=== PATIENT | female | born 1985 | race African-American/Black ===

== ENCOUNTER 2016-08-26 18:24 | Emergency (ER) | payer MEDICAID, OTHER ==
--- NOTE | 2016-08-26 19:11 | ER Document Report ---
ED Medical Screen (RME) - General Chief Complaint: Chest Pain Stated Complaint: CHEST PAIN Notes: Patient is here because she's feeling some left anterior chest pains for the past couple of days. Does not recall any injury or unusual activity. Says it feels "squishy". Also feels a little bit of shortness of breath and she's had a slight cough. No pains in her legs or swelling of either leg. Patient does have a history of a pulmonary embolus in 2014 and was on anticoagulation with warfarin and then Xarelto until 2 months ago. When patient had the PE, her presenting symptoms were syncope and no other symptoms. Thus, this chest pain does not have any semblance to her symptoms with PE No history of hypertension, diabetes, or heart disease. TRAVEL OUTSIDE OF THE [place] IN LAST 30 DAYS: No - Related Data Allergies/Adverse Reactions: No Known Allergies Allergy (Verified 09/14/15 17:55) Past Medical History - Past Medical History Cardiac Medical History: Reports: Hx Pulmonary Embolism Renal/ Medical History: Denies: Hx Peritoneal Dialysis Past Surgical History: Reports: Hx Section, Hx Cholecystectomy Physical Exam - Vital signs Vitals: Temp Pulse Resp BP Pulse Ox 99.2 F 98 16 130/85 H 98 08/26/16 18:39 08/26/16 18:39 08/26/16 18:39 08/26/16 18:39 08/26/16 18:39 Course - Vital Signs Vital signs: Temp Pulse Resp BP Pulse Ox 99.2 F 98 16 130/85 H 98 08/26/16 18:39 08/26/16 18:39 08/26/16 18:39 08/26/16 18:39 08/26/16 18:39
[2016-08-26 19:58] LABS: ABSOLUTE BASOPHILS # (AUTO) 0.1 10^3/uL (0.0-0.2); ABSOLUTE EOSINOPHILS # (AUTO) 0.2 10^3/uL (0.0-0.6); ABSOLUTE MONOCYTES (AUTO) 0.7 10^3/uL (0.1-1.4); ABSOLUTE NEUT (AUTO) 3.5 10^3/uL (1.7-8.2); BASOPHILS % (AUTO) 0.9 % (0-2); EOSINOPHILS % (AUTO) 2.9 % (0-6); HEMATOCRIT 39.8 % (36.0-47.0); HEMOGLOBIN 13.9 g/dL (12.0-15.5); HGB HCT DIFFERENCE 1.9; LYMPHOCYTES % (AUTO) 46.9 % (13-45); MEAN CORPUSCULAR HEMOGLOBIN 31.9 pg (27.0-33.4); MEAN CORPUSCULAR VOLUME 91 fl (80-97); MONOCYTES % (AUTO) 7.9 % (3-13); RED BLOOD COUNT 4.37 10^6/uL (3.72-5.28); SEGMENTED NEUTROPHILS % (AUTO) 41.4 % (42-78); WHITE BLOOD COUNT 8.4 10^3/uL (4.0-10.5)
[2016-08-26 20:06] LABS: ALANINE AMINOTRANSFERASE 23 U/L (9-52); ALBUMIN 4.5 g/dL (3.5-5.0); ALKALINE PHOSPHATASE 62 U/L (38-126); ANION GAP 11 (5-19); ASPARTATE AMINO TRANSFERASE 21 U/L (14-36); BILIRUBIN,DIRECT 0.3 mg/dL (0.0-0.4); BILIRUBIN,TOTAL 0.7 mg/dL (0.2-1.3); BLOOD UREA NITROGEN 11 mg/dL (7-20); CALCIUM 9.4 mg/dL (8.4-10.2); CARBON DIOXIDE 25 mmol/L (22-30); CHLORIDE 108 mmol/L (98-107); CREATININE RESULT 0.86 mg/dL (0.52-1.25); GLUCOSE 98 mg/dL (75-110); POTASSIUM 4.1 mmol/L (3.6-5.0); SODIUM 144.2 mmol/L (137-145); TOTAL PROTEIN 7.9 g/dL (6.3-8.2)
[2016-08-26 20:18] LABS: CREATINE KINASE MB 0.43 ng/mL (<4.55)
[2016-08-26 20:19] LABS: TROPONIN I < 0.012 ng/mL
--- NOTE | 2016-08-26 21:21 | EKG REPORT ---
SEVERITY:- NORMAL ECG - SINUS RHYTHM : Confirmed by: Rocky Santoyo MD 26-Aug-2016 21:21:11
[2016-08-26 22:09] VITALS: BP 129/84
--- NOTE | 2016-08-26 22:45 | ER Document Report ---
ED Cardiac - General Chief Complaint: Chest Pain Stated Complaint: CHEST PAIN Notes: Patient is a 31-year-old female who comes in complaining of intermittent chest discomfort and dyspnea at times. Patient is also felt lightheaded on and off. Patient does not have any symptoms at this time. Patient has a history of a pulmonary embolus in 2014 when she was taking control. Patient is not on any anticoagulation at this time. Again, denies chest pain currently. No other medical problems TRAVEL OUTSIDE OF THE [place] IN LAST 30 DAYS: No - HPI Patient complains to provider of: Chest tightness Quality of pain: None Exacerbated by: Denies Relieved by: Nothing Similar symptoms previously: Yes Recently seen / treated by doctor: No - Related Data Allergies/Adverse Reactions: chocolate flavor Allergy (Verified 08/26/16 20:53) Past Medical History - General Information source: Patient - Social History Smoking Status: Unknown if Ever Smoked Family History: Reviewed & Not Pertinent - Past Medical History Cardiac Medical History: Reports: Hx Pulmonary Embolism Renal/ Medical History: Denies: Hx Peritoneal Dialysis Past Surgical History: Reports: Hx Section, Hx Cholecystectomy Review of Systems - Review of Systems Constitutional: No symptoms reported EENT: No symptoms reported Cardiovascular: See HPI Respiratory: See HPI Gastrointestinal: No symptoms reported Genitourinary: No symptoms reported Female Genitourinary: No symptoms reported Musculoskeletal: No symptoms reported Skin: No symptoms reported Hematologic/Lymphatic: No symptoms reported Neurological/Psychological: No symptoms reported Physical Exam - Vital signs Vitals: Temp Pulse Resp BP Pulse Ox 99.2 F 98 16 130/85 H 98 08/26/16 18:39 08/26/16 18:39 08/26/16 18:39 08/26/16 18:39 08/26/16 18:39 Interpretation: Normal - General General appearance: Appears well, Alert - HEENT Head: Normocephalic, Atraumatic Eyes: Normal Pupils: PERRL - Respiratory Respiratory status: No respiratory distress Chest status: Nontender Breath sounds: Normal Chest palpation: Normal - Cardiovascular Rhythm: Regular Heart sounds: Normal auscultation Murmur: No - Abdominal Inspection: Normal Distension: No distension Bowel sounds: Normal Tenderness: Nontender Organomegaly: No organomegaly - Back Back: Normal, Nontender - Extremities General upper extremity: Normal inspection, Nontender, Normal color, Normal ROM , Normal temperature General lower extremity: Normal inspection, Nontender, Normal color, Normal ROM , Normal temperature, Normal weight bearing. No: Esther's sign - Neurological Neuro grossly intact: Yes Cognition: Normal Orientation: AAOx4 [place] Coma Scale Eye Opening: Spontaneous Suly Coma Scale Verbal: Oriented [place] Coma Scale Motor: Obeys Commands Suly Coma Scale Total: 15 Speech: Normal Motor strength normal: LUE, RUE, LLE, RLE Sensory: Normal - Psychological Associated symptoms: Normal affect, Normal mood - Skin Skin Temperature: Warm Skin Moisture: Dry Skin Color: Normal Course - Re-evaluation Re-evalutation: 08/26/16 23:27 Patient with normal blood work except for slightly elevated d-dimer. CTA with no evidence for blood clot, infection, or any other concerns. Patient will be discharged home is to follow-up with her primary doctor. Stable for discharge. Return if any worsening or concerning symptoms. - Vital Signs Vital signs: Temp Pulse Resp BP Pulse Ox 99.2 F 84 16 129/84 H 100 08/26/16 18:39 08/26/16 22:57 08/26/16 22:57 08/26/16 22:57 08/26/16 22:57 - Laboratory Result Diagrams: 08/26/16 19:50 08/26/16 19:50 Laboratory results interpreted by me: 08/26/16 08/26/16 08/26/16 19:50 19:50 19:50 Seg Neutrophils % 41.4 L Lymphocytes % 46.9 H D-Dimer 0.53 H Chloride 108 H - Diagnostic Test Radiology reviewed: Image reviewed, Reports reviewed Discharge - Discharge Clinical Impression: Chest pain Qualifiers: Chest pain type: unspecified Qualified Code(s): R07.9 - Chest pain, unspecified Condition: Stable Disposition: HOME, SELF-CARE Instructions: Chest Pain of Unclear Cause ([facility]) Forms: Return to Work Scribe Attestation: 08/26/16 23:27 I personally performed the services described in the documentation, reviewed and edited the documentation which was dictated to the scribe in my presence, and it accurately records my words and actions.
== END 2016-08-26 22:58 | disposition home or self-care (01) ==
LOC: ER 18:24
DX: R07.9 Chest pain, unspecified (principal)
CPT/HCPCS: 36415; 71020; 71275; 80053; 81025; 82553; 84484; 85025; 85379; 93005; 93010; 99285

== ENCOUNTER → 2016-10-11 | Outpatient (CLI) | payer OTHER ==
--- NOTE | 2016-10-11 12:15 | RADIOLOGY REPORT (SQ) ---
EXAM DESCRIPTION: CHEST PA/LATERAL COMPLETED DATE/TIME: 10/11/2016 12:05 pm REASON FOR STUDY: ACUTE PHARYNGITIS, UNSPECIFIED,COUGH COMPARISON: 08/26/2016. EXAM PARAMETERS: NUMBER OF VIEWS: two views TECHNIQUE: Digital Frontal and Lateral radiographic views of the chest acquired. RADIATION DOSE: NA LIMITATIONS: none FINDINGS: LUNGS AND PLEURA: No opacities, masses or pneumothorax. No pleural effusion. MEDIASTINUM AND HILAR STRUCTURES: No masses or contour abnormalities. HEART AND VASCULAR STRUCTURES: Heart upper limits of normal size. No evidence for failure. BONES: No acute findings. HARDWARE: None in the chest. OTHER: No other significant finding. IMPRESSION: STABLE BORDERLINE CARDIOMEGALY. NO ACUTE RADIOGRAPHIC FINDING IN THE CHEST. TECHNICAL DOCUMENTATION: JOB ID: [id number] [employer]- All Rights Reserved
--- NOTE | 2016-10-11 12:16 | RADIOLOGY REPORT (SQ) ---
EXAM DESCRIPTION: SOFT TISSUE NECK COMPLETED DATE/TIME: 10/11/2016 12:05 pm REASON FOR STUDY: ACUTE PHARYNGITIS, UNSPECIFIED,COUGH R05 COUGH J02.9 ACUTE PHARYNGITIS, UNSPECIF IED COMPARISON: None. NUMBER OF VIEWS: Two views. TECHNIQUE: AP and lateral radiographic image of the soft tissues of the neck. LIMITATIONS: None. FINDINGS: EPIGLOTTIS: Normal. Contour normal. Aryepiglottic folds normal. PREVERTEBRAL SOFT TISSUES: Normal. No soft tissue swelling. SUBGLOTTIC AREA: Normal. No narrowing. RETROPHARYNGEAL SPACE: Normal. No soft tissue masses. BONY STRUCTURES: No significant findings. LUNG APICES: Normal. OTHER: No radiopaque foreign body. No other significant finding. IMPRESSION: NEGATIVE STUDY OF THE SOFT TISSUES OF THE NECK. TECHNICAL DOCUMENTATION: JOB ID: [id number] [employer]- All Rights Reserved
== END ==
LOC: OD 11:43
PROVIDERS: ATTEND Nurse Practitioner Acute Care
DX: J02.9 Acute pharyngitis, unspecified (principal); R05 Cough
CPT/HCPCS: 70360; 71020

== ENCOUNTER 2018-05-14 13:27 | Inpatient (IN) | payer OTHER, BC ==
[2018-05-14] MEDS ORDERED: IBUPROFEN 800 MG TABLET PO ONE (13:50)
[2018-05-14] MEDS ORDERED: NORMAL SALINE 1000 ML 1,000 ML IV PRN (15:02)
[2018-05-14] MEDS ORDERED: ONDANSETRON HCL INJ/PF 4 MG/2 ML SDV IV ONE (15:03)
--- NOTE | 2018-05-14 15:06 | ER Document Report ---
ED Medical Screen (RME) - General Chief Complaint: Nausea/Vomiting Stated Complaint: ABDOMINAL PAIN Time Seen by Provider: 05/14/18 14:56 Notes: Patient says that she has been sick for the past couple of days. She has had right lower quadrant abdominal pain which is mostly constant and worsened with walking. She is also had vomiting and diarrhea, for the 2 days, about 10 times each. No blood seen. Still nauseated at this time. Has not had any UTI symptoms. Has had fever. LMP 12/16, on Mirena control. PMH: . Gastric bypass 1 year ago. TRAVEL OUTSIDE OF THE [place] IN LAST 30 DAYS: No - Related Data Allergies/Adverse Reactions: chocolate flavor Allergy (Verified 08/26/16 20:53) Past Medical History - Social History Frequency of alcohol use: None Drug Abuse: None - Past Medical History Cardiac Medical History: Reports: Hx Pulmonary Embolism Renal/ Medical History: Denies: Hx Peritoneal Dialysis Past Surgical History: Reports: Hx Section, Hx Cholecystectomy Physical Exam - Vital signs Vitals: Temp Pulse Resp BP Pulse Ox 103.0 F H 115 H 17 109/67 93 05/14/18 13:41 05/14/18 13:41 05/14/18 13:41 05/14/18 13:41 05/14/18 13:41 Course - Vital Signs Vital signs: Temp Pulse Resp BP Pulse Ox 103.0 F H 115 H 17 109/67 93 05/14/18 13:41 05/14/18 13:41 05/14/18 13:41 05/14/18 13:41 05/14/18 13:41
[2018-05-14 15:41] LABS: ABSOLUTE BASOPHILS # (AUTO) 0.1 10^3/uL (0.0-0.2); ABSOLUTE LYMPHOCYTES (AUTO) 1.3 10^3/uL (0.5-4.7); ABSOLUTE MONOCYTES (AUTO) 0.9 10^3/uL (0.1-1.4); ABSOLUTE NEUT (AUTO) 12.5 10^3/uL (1.7-8.2); BASOPHILS % (AUTO) 0.8 % (0-2); EOSINOPHILS % (AUTO) 0.2 % (0-6); HEMATOCRIT 25.4 % (36.0-47.0); LYMPHOCYTES % (AUTO) 8.6 % (13-45); MEAN CORPUSCULAR HGB CONC 30.9 g/dL (32.0-36.0); MEAN CORPUSCULAR VOLUME 74 fl (80-97); PLATELET COUNT 290 10^3/uL (150-450); RED BLOOD COUNT 3.41 10^6/uL (3.72-5.28); SEGMENTED NEUTROPHILS % (AUTO) 84.4 % (42-78); TOTAL CELLS COUNTED % (AUTO) 100 %; WHITE BLOOD COUNT 14.8 10^3/uL (4.0-10.5)
[2018-05-14 15:43] LABS: APPEARANCE,URINE SLIGHTLY-CLOUDY; BILIRUBIN,URINE NEGATIVE (NEGATIVE); GLUCOSE, URINE NEGATIVE (NEGATIVE); KETONES,URINE NEGATIVE (NEGATIVE); LEUKOCYTE ESTERASE,URINE SMALL (NEGATIVE); NITRITE,URINE NEGATIVE (NEGATIVE); PROTEIN,URINE 100 mg/dL (NEGATIVE)
[2018-05-14 15:44] LABS: COLOR,URINE YELLOW
[2018-05-14 15:54] LABS: HEMOGLOBIN 7.9 g/dL (12.0-15.5)
[2018-05-14 15:56] LABS: ALANINE AMINOTRANSFERASE 21 U/L (9-52); ALBUMIN 3.8 g/dL (3.5-5.0); ALKALINE PHOSPHATASE 111 U/L (38-126); ANION GAP 9 (5-19); ASPARTATE AMINO TRANSFERASE 19 U/L (14-36); BILIRUBIN,DIRECT 0.3 mg/dL (0.0-0.4); BILIRUBIN,TOTAL 1.1 mg/dL (0.2-1.3); BLOOD UREA NITROGEN 10 mg/dL (7-20); CALCIUM 9.2 mg/dL (8.4-10.2); CARBON DIOXIDE 23 mmol/L (22-30); CHLORIDE 107 mmol/L (98-107); GLUCOSE 95 mg/dL (75-110); LIPASE 58.2 U/L (23-300); POTASSIUM 3.3 mmol/L (3.6-5.0); SODIUM 139.2 mmol/L (137-145); TOTAL PROTEIN 7.3 g/dL (6.3-8.2)
--- NOTE | 2018-05-14 16:45 | ER Document Report ---
ED GI/ - General Chief Complaint: Nausea/Vomiting Stated Complaint: ABDOMINAL PAIN Time Seen by Provider: 05/14/18 14:56 Mode of Arrival: Ambulatory Information source: Patient Notes: Patient presents complaining of right lower quadrant pain for the past 2 days. Patient reports nausea vomiting and diarrhea. Patient states she last vomited yesterday and had diarrhea x2 episodes today. Patient denies any urinary symptoms. Patient does report fever started yesterday. Patient does complain of mild cough for the past 3 days. TRAVEL OUTSIDE OF THE [place] IN LAST 30 DAYS: No - HPI Patient complains to provider of: Diarrhea, Pelvic pain, Vomiting Onset: Other - 2 days Timing/Duration: Worse Quality of pain: Achy, Sharp Pain Level: 3 Location: RLQ Vaginal bleeding (Compared to normal period): None Menstrual period history: denies: Associated symptoms: Diarrhea, Fever, Nausea, Vomiting. denies: Dysuria, Urinary hesitancy, Urinary frequency, Urinary retention, Urinary urgency Exacerbated by: Denies Relieved by: Denies Similar symptoms previously: No Recently seen / treated by doctor: No - Related Data Allergies/Adverse Reactions: chocolate flavor Allergy (Verified 08/26/16 20:53) Past Medical History - General Information source: Patient - Social History Smoking Status: Never Smoker Frequency of alcohol use: None Drug Abuse: None Occupation: driver examiner Family History: Reviewed & Not Pertinent Patient has suicidal ideation: No Patient has homicidal ideation: No - Past Medical History Cardiac Medical History: Reports: Hx Pulmonary Embolism Renal/ Medical History: Denies: Hx Peritoneal Dialysis Past Surgical History: Reports: Hx Section, Hx Cholecystectomy, Hx Gastric Bypass Surgery Review of Systems - Review of Systems Constitutional: Fever EENT: No symptoms reported Cardiovascular: Dizziness. denies: Chest pain Respiratory: No symptoms reported. denies: Cough, Short of breath Gastrointestinal: Abdominal pain, Diarrhea, Nausea, Vomiting Genitourinary: No symptoms reported. denies: Dysuria, Flank pain Female Genitourinary: No symptoms reported. denies: , Vaginal discharge Musculoskeletal: No symptoms reported Skin: No symptoms reported Hematologic/Lymphatic: No symptoms reported Neurological/Psychological: No symptoms reported Physical Exam - Vital signs Vitals: Temp Pulse Resp BP Pulse Ox 103.0 F H 115 H 17 109/67 93 05/14/18 13:41 05/14/18 13:41 05/14/18 13:41 05/14/18 13:41 05/14/18 13:41 - General General appearance: Appears well, Alert In distress: None - HEENT Head: Normocephalic, Atraumatic Eyes: Normal Conjunctiva: Normal Nasal: Normal Mouth/Lips: Normal Mucous membranes: Normal Neck: Normal, Supple. No: Lymphadenopathy - Respiratory Respiratory status: No respiratory distress Chest status: Nontender Breath sounds: Normal. No: Rales, Rhonchi, Stridor, Wheezing Chest palpation: Normal - Cardiovascular Rhythm: Regular Heart sounds: S1 appreciated, S2 appreciated Murmur: No - Abdominal Inspection: Normal Distension: No distension Bowel sounds: Normal Tenderness: Tender - Lower pelvic, right worse than left, McBurney's point Organomegaly: No organomegaly - Rectal Tenderness: No Stool: See lab result Hemorrhoids: None - Genitourinary External exam: Normal Speculum exam: Cervix closed, Vaginal discharge Vaginal bleeding: None Bimanuel exam: Cervical motion tender, Adnexal tenderness - Right - Back Back: Normal, Nontender. No: CVA tenderness - Extremities General upper extremity: Normal inspection, Normal strength General lower extremity: Normal inspection, Normal strength - Neurological Neuro grossly intact: Yes Cognition: Normal [place] Coma Scale Eye Opening: Spontaneous Suly Coma Scale Verbal: Oriented [place]uly Coma Scale Motor: Obeys Commands Suly Coma Scale Total: 15 - Psychological Associated symptoms: Normal affect, Normal mood - Skin Skin Temperature: Warm Skin Moisture: Dry Skin Color: Normal Course - Re-evaluation Re-evalutation: 05/14/18 18:[address] Whitlock regarding patient's diagnostic test results. Discussed concern about need for possible transfusion. Patient does have a history of gastric bypass surgery that was performed last year. Patient is uncertain of what her last hemoglobin and hematocrit were. Recommends repeating H&H at this time. 05/14/18 20:30 Lab at bedside for blood draw. 05/14/18 21:00 Discussed repeat H&H with Dr. Whitlock, does not recommend transfusion at this time. 05/14/18 21:[address] Beasley regarding patient's location of her pain symptoms and concerned that appendix was not identified on CT scan. Dr. Beasley reviewed patient's CT scan and recommends consultation with OB as he feels that this is the gynecologic issue. Told with Dr. Torres regarding patient presentation. Dr. Torres recommends admitting patient to her services on the second floor and removing the IUD. Advises giving patient doxycycline and Rocephin. 05/14/18 22:01 Patient with some purulent vaginal bleeding noted on examination prior to IUD removal, IUD removed with gentle traction. - Vital Signs Vital signs: Temp Pulse Resp BP Pulse Ox 98.5 F 100 16 110/63 100 05/14/18 18:42 05/14/18 18:42 05/14/18 18:42 05/14/18 18:42 05/14/18 18:42 - Laboratory Result Diagrams: 05/14/18 20:35 05/14/18 15:24 Laboratory results interpreted by me: 05/14/18 05/14/18 05/14/18 15:24 15:24 15:24 WBC 14.8 H RBC 3.41 L Hgb 7.9 L Hct 25.4 L MCV 74 L MCH 23.0 L MCHC 30.9 L RDW 16.0 H Seg Neutrophils % 84.4 H Lymphocytes % 8.6 L Absolute Neutrophils 12.5 H PT Potassium 3.3 L Urine Protein 100 H Urine Urobilinogen 2.0 H Ur Leukocyte Esterase SMALL H N.gonorrhoeae DNA (PCR) 05/14/18 05/14/18 05/14/18 15:24 18:00 20:35 WBC 13.2 H RBC 3.20 L Hgb 7.3 L Hct 24.0 L MCV 75 L MCH 22.9 L MCHC 30.5 L RDW 16.5 H Seg Neutrophils % Lymphocytes % Absolute Neutrophils PT 16.0 H Potassium Urine Protein Urine Urobilinogen Ur Leukocyte Esterase N.gonorrhoeae DNA (PCR) DETECTED H 05/14/18 21:49 Labs- Entire Visit 05/14/18 05/14/18 05/14/18 15:24 15:24 15:24 WBC 14.8 H RBC 3.41 L Hgb 7.9 L Hct 25.4 L MCV 74 L MCH 23.0 L MCHC 30.9 L RDW 16.0 H Plt Count 290 Seg Neutrophils % 84.4 H Lymphocytes % 8.6 L Monocytes % 6.0 Eosinophils % 0.2 Basophils % 0.8 Absolute Neutrophils 12.5 H Absolute Lymphocytes 1.3 Absolute Monocytes 0.9 Absolute Eosinophils 0.0 Absolute Basophils 0.1 PT INR APTT VBG pH VBG pCO2 VBG HCO3 VBG Base Excess Sodium 139.2 Potassium 3.3 L Chloride 107 Carbon Dioxide 23 Anion Gap 9 BUN 10 Creatinine 0.75 Est GFR ( Amer) > 60 Est GFR (Non-Af Amer) > 60 Glucose 95 Lactic Acid Calcium 9.2 Total Bilirubin 1.1 Direct Bilirubin 0.3 Neonat Total Bilirubin Not Reportable Neonat Direct Bilirubin Not Reportable Neonat Indirect Bili Not Reportable AST 19 ALT 21 Alkaline Phosphatase 111 Total Protein 7.3 Albumin 3.8 Lipase 58.2 Serum HCG, Qual NEGATIVE Urine Color Urine Appearance Urine pH Ur Specific [place] Urine Protein Urine Glucose (UA) Urine Ketones Urine Blood Urine Nitrite Urine Bilirubin Urine Urobilinogen Ur Leukocyte Esterase Urine WBC (Auto) Urine RBC (Auto) Urine Bacteria (Auto) Squamous Epi Cells Auto Urine Mucus (Auto) Urine Ascorbic Acid Stool Occult Blood Epi Cells (Wet Prep) Bacteria (Wet Prep) Trichomonas (Wet Prep) Vaginal WBC Vaginal Yeast Chlamydia DNA (PCR) N.gonorrhoeae DNA (PCR) 05/14/18 05/14/18 05/14/18 15:24 15:24 18:00 WBC RBC Hgb Hct MCV MCH MCHC RDW Plt Count Seg Neutrophils % Lymphocytes % Monocytes % Eosinophils % Basophils % Absolute Neutrophils Absolute Lymphocytes Absolute Monocytes Absolute Eosinophils Absolute Basophils PT 16.0 H INR 1.22 APTT 28.6 VBG pH VBG pCO2 VBG HCO3 VBG Base Excess Sodium Potassium Chloride Carbon Dioxide Anion Gap BUN Creatinine Est GFR ( Amer) Est GFR (Non-Af Amer) Glucose Lactic Acid Calcium Total Bilirubin Direct Bilirubin Neonat Total Bilirubin Neonat Direct Bilirubin Neonat Indirect Bili AST ALT Alkaline Phosphatase Total Protein Albumin Lipase Serum HCG, Qual Urine Color YELLOW Urine Appearance SLIGHTLY-CLOUDY Urine pH 5.0 Ur Specific [place] 1.030 Urine Protein 100 H Urine Glucose (UA) NEGATIVE Urine Ketones NEGATIVE Urine Blood NEGATIVE Urine Nitrite NEGATIVE Urine Bilirubin NEGATIVE Urine Urobilinogen 2.0 H Ur Leukocyte Esterase SMALL H Urine WBC (Auto) 11 Urine RBC (Auto) 1 Urine Bacteria (Auto) TRACE Squamous Epi Cells Auto 2 Urine Mucus (Auto) MANY Urine Ascorbic Acid NEGATIVE Stool Occult Blood NEGATIVE Epi Cells (Wet Prep) Bacteria (Wet Prep) Trichomonas (Wet Prep) Vaginal WBC Vaginal Yeast Chlamydia DNA (PCR) N.gonorrhoeae DNA (PCR) 05/14/18 05/14/18 05/14/18 18:00 18:00 20:32 WBC RBC Hgb Hct MCV MCH MCHC RDW Plt Count Seg Neutrophils % Lymphocytes % Monocytes % Eosinophils % Basophils % Absolute Neutrophils Absolute Lymphocytes Absolute Monocytes Absolute Eosinophils Absolute Basophils PT INR APTT VBG pH 7.37 VBG pCO2 41.3 VBG HCO3 23.1 VBG Base Excess -2.1 Sodium Potassium Chloride Carbon Dioxide Anion Gap BUN Creatinine Est GFR ( Amer) Est GFR (Non-Af Amer) Glucose Lactic Acid Calcium Total Bilirubin Direct Bilirubin Neonat Total Bilirubin Neonat Direct Bilirubin Neonat Indirect Bili AST ALT Alkaline Phosphatase Total Protein Albumin Lipase Serum HCG, Qual Urine Color Urine Appearance Urine pH Ur Specific [place] Urine Protein Urine Glucose (UA) Urine Ketones Urine Blood Urine Nitrite Urine Bilirubin Urine Urobilinogen Ur Leukocyte Esterase Urine WBC (Auto) Urine RBC (Auto) Urine Bacteria (Auto) Squamous Epi Cells Auto Urine Mucus (Auto) Urine Ascorbic Acid Stool Occult Blood Epi Cells (Wet Prep) 4+ EPITHELIALS SEEN Bacteria (Wet Prep) 4+ BACTERIA SEEN Trichomonas (Wet Prep) NO TRICHOMONAS SEEN Vaginal WBC 4+ WBCS SEEN Vaginal Yeast NO YEAST SEEN Chlamydia DNA (PCR) NOT DETECTED N.gonorrhoeae DNA (PCR) DETECTED H 05/14/18 05/14/18 20:35 20:35 WBC 13.2 H RBC 3.20 L Hgb 7.3 L Hct 24.0 L MCV 75 L MCH 22.9 L MCHC 30.5 L RDW 16.5 H Plt Count 254 Seg Neutrophils % Lymphocytes % Monocytes % Eosinophils % Basophils % Absolute Neutrophils Absolute Lymphocytes Absolute Monocytes Absolute Eosinophils Absolute Basophils PT INR APTT VBG pH VBG pCO2 VBG HCO3 VBG Base Excess Sodium Potassium Chloride Carbon Dioxide Anion Gap BUN Creatinine Est GFR ( Amer) Est GFR (Non-Af Amer) Glucose Lactic Acid 1.1 Calcium Total Bilirubin Direct Bilirubin Neonat Total Bilirubin Neonat Direct Bilirubin Neonat Indirect Bili AST ALT Alkaline Phosphatase Total Protein Albumin Lipase Serum HCG, Qual Urine Color Urine Appearance Urine pH Ur Specific [place] Urine Protein Urine Glucose (UA) Urine Ketones Urine Blood Urine Nitrite Urine Bilirubin Urine Urobilinogen Ur Leukocyte Esterase Urine WBC (Auto) Urine RBC (Auto) Urine Bacteria (Auto) Squamous Epi Cells Auto Urine Mucus (Auto) Urine Ascorbic Acid Stool Occult Blood Epi Cells (Wet Prep) Bacteria (Wet Prep) Trichomonas (Wet Prep) Vaginal WBC Vaginal Yeast Chlamydia DNA (PCR) N.gonorrhoeae DNA (PCR) - Diagnostic Test Radiology reviewed: Image reviewed, Reports reviewed Discharge - Discharge Clinical Impression: Fever, PID (acute pelvic inflammatory disease), Anemia, Pain in pelvis, Gonorr hea Condition: Fair Disposition: ADMITTED INPATIENT Admitting Provider: [facility] Admitted: Medical Floor - 2nd floor
[2018-05-14] MEDS ORDERED: POTASSIUM CHLORIDE 20 MEQ/15 ML UDCUP PO ONE (16:46)
--- NOTE | 2018-05-14 17:57 | RADIOLOGY REPORT (SQ) ---
EXAM DESCRIPTION: CHEST 2 VIEWS COMPLETED DATE/TIME: 05/14/2018 5:33 pm REASON FOR STUDY: sepsis protocol COMPARISON: 08/26/2016 TECHNIQUE: Frontal and lateral radiographic views of the chest acquired. NUMBER OF VIEWS: Two view. LIMITATIONS: None. FINDINGS: LUNGS AND PLEURA: No pneumothorax. No consolidation or pleural effusion. MEDIASTINUM AND HILAR STRUCTURES: Stable. HEART AND VASCULAR STRUCTURES: Stable. BONES: No acute findings. HARDWARE: None in the chest. OTHER: No other significant finding. IMPRESSION: NO ACUTE FINDINGS. TECHNICAL DOCUMENTATION: JOB ID: [id number] [id number] 2010 [employer]- All Rights Reserved Reading location - IP/workstation name: [email or web address]
[2018-05-14 18:36] LABS: INTERNATIONAL RATION (INR) 1.22
[2018-05-14] MEDS ORDERED: FENTANYL CITRATE INJ/PF 100 MCG/2 ML AMPUL IV ONE (18:36)
[2018-05-14 18:37] LABS: PARTIAL THROMBOPLASTIN TIME 28.6 SEC (23.5-35.8)
[2018-05-14 18:43] LABS: BACTERIA (WET MOUNT) 4+ BACTERIA SEEN; EPITHELIALS (WET MOUNT) 4+ EPITHELIALS SEEN; T.VAGINALIS (WET MOUNT) NO TRICHOMONAS SEEN; WBCS (WET MOUNT) 4+ WBCS SEEN; YEAST (WET MOUNT) NO YEAST SEEN
--- NOTE | 2018-05-14 19:49 | EKG REPORT ---
SEVERITY:- NORMAL ECG - SINUS RHYTHM : Confirmed by: Ellyn Irene MD 14-May-2018 19:49:00
--- NOTE | 2018-05-14 20:14 | RADIOLOGY REPORT (SQ) ---
EXAM DESCRIPTION: U/S NON OB PEL TV W/DOPPLER COMPLETED DATE/TIME: 05/14/2018 8:01 pm REASON FOR STUDY: RLQ pain COMPARISON: None. TECHNIQUE: Dynamic and static grayscale images acquired of the pelvis via transvaginal approach and recorded on PACS. Additional selected color Doppler and spectral images recorded. LIMITATIONS: None. FINDINGS: UTERUS: Contour normal. No mass. ENDOMETRIAL STRIPE: No focal or generalized thickening. No masses. CERVIX: No nabothian cysts. IUD in the cervical canal. RIGHT OVARY AND DOPPLER: Normal size. 3.9 cm septated cyst. Normal arterial vascular flow without ev idence for torsion. LEFT OVARY AND DOPPLER: Normal size. No worrisome masses. Normal arterial vascular flow without evide nce for torsion. FREE FLUID: Free fluid in the posterior cul-de-sac and in the left adnexa. OTHER: No other significant finding. MEASUREMENTS: UTERUS: 5.6 x 6.8 x 12.6 cm. ENDOMETRIAL STRIPE: 1.3 cm. RIGHT OVARY: 3.9 x 4.6 x 6.5 cm. LEFT OVARY: 3.1 x 3.1 x 4.7 cm. IMPRESSION: 1. IUD LOCATED IN THE CERVICAL CANAL. NOT IN THE ENDOMETRIAL CANAL. 2. SEPTATED CYST IN THE RIGHT OVARY. 3. FREE FLUID IN THE POSTERIOR CUL-DE-SAC AND LEFT ADNEXAL REGION. 4. NO OVARIAN TORSION. TECHNICAL DOCUMENTATION: JOB ID: [id number] [employer]- All Rights Reserved Rev-09/28 Reading location - IP/workstation name: [email or web address]
[2018-05-14 20:50] LABS: VENOUS BLOOD BASE EXCESS -2.1 mmol/L; VENOUS BLOOD HCO3 23.1 mmol/L (20-32); VENOUS BLOOD PCO2 41.3 mmHg (35-63); VENOUS BLOOD PH 7.37 (7.30-7.42)
[2018-05-14 20:58] LABS: MEAN CORPUSCULAR HEMOGLOBIN 22.9 pg (27.0-33.4); MEAN CORPUSCULAR HGB CONC 30.5 g/dL (32.0-36.0); MEAN CORPUSCULAR VOLUME 75 fl (80-97); PLATELET COUNT 254 10^3/uL (150-450); RED CELL DISTRIBUTION WIDTH 16.5 % (11.5-14.0); WHITE BLOOD COUNT 13.2 10^3/uL (4.0-10.5)
[2018-05-14 21:04] LABS: HEMOGLOBIN 7.3 g/dL (12.0-15.5)
[2018-05-14 21:07] LABS: CHLAM PCR NOT DETECTED (NOT DETECT); GON PCR DETECTED (NOT DETECT)
--- NOTE | 2018-05-14 21:18 | RADIOLOGY REPORT (SQ) ---
CT ABDOMEN PELVIS WITH IV CONTRAST HISTORY: RLQ pain. COMPARISON: None. TECHNIQUE: CT scan of the abdomen and pelvis with IV contrast. This exam was performed according to our departmental dose-optimization program, which includes automated exposure control, adjustment of the mA and/or kV according to patient size and/or use of iterative reconstruction technique. FINDINGS: The lung bases are clear. No pleural or pericardial effusions. Subcentimeter hypodensity in the liver which is too small to characterize. Spleen and pancreas are unremarkable. No gallstones by CT criteria. No adrenal masses are identified. Both kidneys are symmetric, without hydronephrosis. No ureteral or bladder stones are seen. There is an IUD in situ. Small amount of pelvic free fluid is seen. There is likely a 2 cm right corpus luteum cyst. There is been a prior gastric bypass surgery. The appendix is not discerned. The abdominal aorta is normal caliber. The osseous structures are intact. IMPRESSION: 1. A likely 2 cm right corpus luteum cyst. Correlate with same day ultrasound 2. Appendix is not completely visualized. However, there are no pericecal inflammatory changes.
[2018-05-14] MEDS ORDERED: DOXYCYCLINE HYCLATE INJ 100 MG VIAL IV ONE (21:29)
--- NOTE | 2018-05-14 21:58 | PDOC CONSULTATION ---
Consultation Consult Date: 05/14/18 Attending physician:: ALMA VERGARA Consult reason:: Rule out appendicitis History of Present Illness Admission Date/PCP: ANTONIA DUBOIS DO Patient complains of: Right lower quadrant pain History of Present Illness: TIRSO HENDERSON is a 32 year old female Presents to the emergency department via ground rescue complaining of 4-day his tory of deep right lower quadrant pelvic pain, associate with nausea vomiting and diarrhea. She denies history of trauma previous episodes intestinal problems or contact with anybody with similar symptoms. Patient seen in the emergency department where she was found to have right lower quadrant te nderness, gynecologic exam which showed normal motion tenderness, positive cervical swab positive for gonorrhea, CT scan findings showing complex right adnexal mass consistent with cyst versus abscess; CT scan performed with IV and oral contrast. Appendix not seen. Surgery consulted to rule out appendicitis. Last menstrual period 2 weeks ago; patient is status post section. 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 Flores, [facility] Past Medical History Medical History: None - Anemia Cardiac Medical History: Reports: Pulmonary Embolism Past Surgical History Past Surgical History: As per HPI Past Surgical History: Reports: Section, Cholecystectomy Social History Smoking Status: Never Smoker Frequency of Alcohol Use: None Hx Prescription Drug Abuse: No Family History Family History: Reviewed & Not Pertinent Parental Family History Reviewed: Yes Children Family History Reviewed: Yes Sibling(s) Family History Reviewed.: Yes Medication/Allergy Home Medications: Azithromycin [Zithromax 250 mg Tablet] 250 mg PO ASDIR PRN #6 tablet 09/14/15 Allergies/Adverse Reactions: chocolate flavor Allergy (Verified 08/26/16 20:53) Review of Systems Constitutional: PRESENT: as per HPI Eyes: ABSENT: visual disturbances Ears: ABSENT: hearing changes Cardiovascular: ABSENT: chest pain, dyspnea on exertion, edema, orthropnea, palpitations Respiratory: ABSENT: cough, hemoptysis Gastrointestinal: PRESENT: as per HPI Musculoskeletal: ABSENT: joint swelling Integumentary: ABSENT: rash, wounds Physical Exam Vital Signs: Temp Pulse Resp BP Pulse Ox 98.5 F 100 16 110/63 100 05/14/18 18:42 05/14/18 18:42 05/14/18 18:42 05/14/18 18:42 05/14/18 18:42 Intake & Output 05/13/18 05/14/18 05/15/18 06:59 06:59 06:59 Weight 67.4 kg General appearance: PRESENT: no acute distress Head exam: PRESENT: normocephalic Eye exam: PRESENT: EOMI Mouth exam: PRESENT: dry mucosa Neck exam: PRESENT: full ROM Respiratory exam: PRESENT: clear to auscultation gavino Cardiovascular exam: PRESENT: RRR Pulses: PRESENT: normal carotid pulses, normal radial pulses GI/Abdominal exam: PRESENT: other - Tender right lower quadrant no rigidity some guarding no distention Rectal exam: PRESENT: deferred Extremities exam: PRESENT: full ROM Musculoskeletal exam: PRESENT: full ROM Neurological exam: PRESENT: alert, awake, oriented to person, oriented to place, oriented to time, oriented to situation Psychiatric exam: PRESENT: appropriate affect Results Laboratory Results: 05/14/18 20:35 05/14/18 15:24 05/14/18 05/14/18 05/14/18 15:24 15:24 15:24 WBC 14.8 H RBC 3.41 L Hgb 7.9 L Hct 25.4 L MCV 74 L MCH 23.0 L MCHC 30.9 L RDW 16.0 H Plt Count 290 Seg Neutrophils % 84.4 H Lymphocytes % 8.6 L Monocytes % 6.0 Eosinophils % 0.2 Basophils % 0.8 Absolute Neutrophils 12.5 H Absolute Lymphocytes 1.3 Absolute Monocytes 0.9 Absolute Eosinophils 0.0 Absolute Basophils 0.1 VBG pH VBG pCO2 VBG HCO3 VBG Base Excess Sodium 139.2 Potassium 3.3 L Chloride 107 Carbon Dioxide 23 Anion Gap 9 BUN 10 Creatinine 0.75 Est GFR ( Amer) > 60 Est GFR (Non-Af Amer) > 60 Glucose 95 Lactic Acid Calcium 9.2 Total Bilirubin 1.1 AST 19 ALT 21 Alkaline Phosphatase 111 Total Protein 7.3 Albumin 3.8 Lipase 58.2 Serum HCG, Qual NEGATIVE Urine Color Urine Appearance Urine pH Ur Specific [place] Urine Protein Urine Glucose (UA) Urine Ketones Urine Blood Urine Nitrite Ur Leukocyte Esterase Urine WBC (Auto) Urine RBC (Auto) Stool Occult Blood 05/14/18 05/14/18 05/14/18 15:24 18:00 20:32 WBC RBC Hgb Hct MCV MCH MCHC RDW Plt Count Seg Neutrophils % Lymphocytes % Monocytes % Eosinophils % Basophils % Absolute Neutrophils Absolute Lymphocytes Absolute Monocytes Absolute Eosinophils Absolute Basophils VBG pH 7.37 VBG pCO2 41.3 VBG HCO3 23.1 VBG Base Excess -2.1 Sodium Potassium Chloride Carbon Dioxide Anion Gap BUN Creatinine Est GFR ( Amer) Est GFR (Non-Af Amer) Glucose Lactic Acid Calcium Total Bilirubin AST ALT Alkaline Phosphatase Total Protein Albumin Lipase Serum HCG, Qual Urine Color YELLOW Urine Appearance SLIGHTLY-CLOUDY Urine pH 5.0 Ur Specific [place] 1.030 Urine Protein 100 H Urine Glucose (UA) NEGATIVE Urine Ketones NEGATIVE Urine Blood NEGATIVE Urine Nitrite NEGATIVE Ur Leukocyte Esterase SMALL H Urine WBC (Auto) 11 Urine RBC (Auto) 1 Stool Occult Blood NEGATIVE 05/14/18 05/14/18 20:35 20:35 WBC 13.2 H RBC 3.20 L Hgb 7.3 L Hct 24.0 L MCV 75 L MCH 22.9 L MCHC 30.5 L RDW 16.5 H Plt Count 254 Seg Neutrophils % Lymphocytes % Monocytes % Eosinophils % Basophils % Absolute Neutrophils Absolute Lymphocytes Absolute Monocytes Absolute Eosinophils Absolute Basophils VBG pH VBG pCO2 VBG HCO3 VBG Base Excess Sodium Potassium Chloride Carbon Dioxide Anion Gap BUN Creatinine Est GFR ( Amer) Est GFR (Non-Af Amer) Glucose Lactic Acid 1.1 Calcium Total Bilirubin AST ALT Alkaline Phosphatase Total Protein Albumin Lipase Serum HCG, Qual Urine Color Urine Appearance Urine pH Ur Specific [place] Urine Protein Urine Glucose (UA) Urine Ketones Urine Blood Urine Nitrite Ur Leukocyte Esterase Urine WBC (Auto) Urine RBC (Auto) Stool Occult Blood Impressions: Abdomen/Pelvis CT 05/14/18 00:00 IMPRESSION: 1. A likely 2 cm right corpus luteum cyst. Correlate with same day ultrasound 2. Appendix is not completely visualized. However, there are no pericecal inflammatory changes. Chest X-Ray 05/14/18 16:40 IMPRESSION: NO ACUTE FINDINGS. Transvaginal US 05/14/18 18:09 IMPRESSION: 1. IUD LOCATED IN THE CERVICAL CANAL. NOT IN THE ENDOMETRIAL CANAL. 2. SEPTATED CYST IN THE RIGHT OVARY. 3. FREE FLUID IN THE POSTERIOR CUL-DE-SAC AND LEFT ADNEXAL REGION. 4. NO OVARIAN TORSION. Assessment & Plan - Diagnosis (1) Pelvic pain Is this a current diagnosis for this admission?: Yes Plan: Impression: 4-day history of abdominal pain nausea vomiting diarrhea deep pelvic tenderness, cervical motion tenderness on pelvic exam, positive gonorrhea test, and CT scan findings consistent with right tubo-ovarian process either cyst or abscess; composite picture consistent with pelvic inflammatory disease; appendix not visualized on CT scan which was reviewed by Dr. Beasley.; clinical history and exam less likely consistent with acute appendicitis Recommendations: 1. ANIMAL NURSE consultation and likely admission for further evaluation and treatment of principal gynecologic problem 2. 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
[2018-05-14] MEDS: NORMAL SALINE 1000 ML 1,000 ML IV PRN (22:07)
[2018-05-15] MEDS ORDERED: ONDANSETRON HCL INJ/PF 4 MG/2 ML SDV IV PRN (03:48)
[2018-05-15] MEDS: IBUPROFEN 800 MG TABLET PO PRN (03:59)
--- NOTE | 2018-05-15 07:11 | PDOC H&P ---
History of Present Illness Admission Date/PCP: 05/14/18 22:24 ANTONIA DUBOIS DO Patient complains of: 4 day history of worsening abdominal pain, nausea and vomiting History of Present Illness: TIRSO HENDERSON is a 32 year old female with a 4 day h/o right lower abdominal pain with some nausea/vomiting/diarrhea. pain gradually worsened over the 4 days. Pt indicates a h/o c/section 10 years ago and more recently a gastric bypass in May of 2017. Past Medical History Cardiac Medical History: Reports: Pulmonary Embolism Psychiatric Medical History: Denies: Depression Past Surgical History Past Surgical History: Reports: Section, Cholecystectomy, Gastric Bypass Surgery Social History Information Source: Patient Lives with: Family Smoking Status: Never Smoker Frequency of Alcohol Use: None Hx Recreational Drug Use: No Drugs: None Hx Prescription Drug Abuse: No - Advance Directive Resuscitation Status: Full Code Family History Family History: Reviewed & Not Pertinent Parental Family History Reviewed: Yes Children Family History Reviewed: Yes Sibling(s) Family History Reviewed.: Yes - sister with ovarian ca at age 25 who underwent hysterectomy Medication/Allergy Home Medications: Azithromycin [Zithromax 250 mg Tablet] 250 mg PO ASDIR PRN #6 tablet 09/14/15 Allergies/Adverse Reactions: chocolate flavor Allergy (Verified 08/26/16 20:53) Physical Exam - Physical Exam Vital Signs: Temp Pulse Resp BP Pulse Ox 99.4 F 108 H 18 100/54 L 99 05/15/18 06:59 05/15/18 04:13 05/15/18 04:13 05/15/18 04:13 05/15/18 04:13 Intake & Output 05/14/18 05/15/18 05/16/18 06:59 06:59 06:59 Intake Total 1200 Balance 1200 Weight 67 kg General appearance: PRESENT: no acute distress, cooperative GI/Abdominal exam: PRESENT: soft, tenderness - concentrated on right lower quadrant. no rebound tenderness ilicited Result Laboratory Results: 05/14/18 20:35 05/14/18 15:24 05/14/18 05/14/18 05/14/18 15:24 15:24 15:24 WBC 14.8 H RBC 3.41 L Hgb 7.9 L Hct 25.4 L MCV 74 L MCH 23.0 L MCHC 30.9 L RDW 16.0 H Plt Count 290 Seg Neutrophils % 84.4 H Lymphocytes % 8.6 L Monocytes % 6.0 Eosinophils % 0.2 Basophils % 0.8 Absolute Neutrophils 12.5 H Absolute Lymphocytes 1.3 Absolute Monocytes 0.9 Absolute Eosinophils 0.0 Absolute Basophils 0.1 VBG pH VBG pCO2 VBG HCO3 VBG Base Excess Sodium 139.2 Potassium 3.3 L Chloride 107 Carbon Dioxide 23 Anion Gap 9 BUN 10 Creatinine 0.75 Est GFR ( Amer) > 60 Est GFR (Non-Af Amer) > 60 Glucose 95 Lactic Acid Calcium 9.2 Total Bilirubin 1.1 AST 19 ALT 21 Alkaline Phosphatase 111 Total Protein 7.3 Albumin 3.8 Lipase 58.2 Serum HCG, Qual NEGATIVE Urine Color Urine Appearance Urine pH Ur Specific [place] Urine Protein Urine Glucose (UA) Urine Ketones Urine Blood Urine Nitrite Ur Leukocyte Esterase Urine WBC (Auto) Urine RBC (Auto) Stool Occult Blood Blood Type Antibody Screen 05/14/18 05/14/18 05/14/18 15:24 18:00 20:32 WBC RBC Hgb Hct MCV MCH MCHC RDW Plt Count Seg Neutrophils % Lymphocytes % Monocytes % Eosinophils % Basophils % Absolute Neutrophils Absolute Lymphocytes Absolute Monocytes Absolute Eosinophils Absolute Basophils VBG pH 7.37 VBG pCO2 41.3 VBG HCO3 23.1 VBG Base Excess -2.1 Sodium Potassium Chloride Carbon Dioxide Anion Gap BUN Creatinine Est GFR ( Amer) Est GFR (Non-Af Amer) Glucose Lactic Acid Calcium Total Bilirubin AST ALT Alkaline Phosphatase Total Protein Albumin Lipase Serum HCG, Qual Urine Color YELLOW Urine Appearance SLIGHTLY-CLOUDY Urine pH 5.0 Ur Specific [place] 1.030 Urine Protein 100 H Urine Glucose (UA) NEGATIVE Urine Ketones NEGATIVE Urine Blood NEGATIVE Urine Nitrite NEGATIVE Ur Leukocyte Esterase SMALL H Urine WBC (Auto) 11 Urine RBC (Auto) 1 Stool Occult Blood NEGATIVE Blood Type Antibody Screen 05/14/18 05/14/18 05/14/18 20:35 20:35 20:35 WBC 13.2 H RBC 3.20 L Hgb 7.3 L Hct 24.0 L MCV 75 L MCH 22.9 L MCHC 30.5 L RDW 16.5 H Plt Count 254 Seg Neutrophils % Lymphocytes % Monocytes % Eosinophils % Basophils % Absolute Neutrophils Absolute Lymphocytes Absolute Monocytes Absolute Eosinophils Absolute Basophils VBG pH VBG pCO2 VBG HCO3 VBG Base Excess Sodium Potassium Chloride Carbon Dioxide Anion Gap BUN Creatinine Est GFR ( Amer) Est GFR (Non-Af Amer) Glucose Lactic Acid 1.1 Calcium Total Bilirubin AST ALT Alkaline Phosphatase Total Protein Albumin Lipase Serum HCG, Qual Urine Color Urine Appearance Urine pH Ur Specific [place] Urine Protein Urine Glucose (UA) Urine Ketones Urine Blood Urine Nitrite Ur Leukocyte Esterase Urine WBC (Auto) Urine RBC (Auto) Stool Occult Blood Blood Type A POSITIVE Antibody Screen NEGATIVE Impressions: Abdomen/Pelvis CT 05/14/18 00:00 IMPRESSION: 1. A likely 2 cm right corpus luteum cyst. Correlate with same day ultrasound 2. Appendix is not completely visualized. However, there are no pericecal inflammatory changes. Chest X-Ray 05/14/18 16:40 IMPRESSION: NO ACUTE FINDINGS. Transvaginal US 05/14/18 18:09 IMPRESSION: 1. IUD LOCATED IN THE CERVICAL CANAL. NOT IN THE ENDOMETRIAL CANAL. 2. SEPTATED CYST IN THE RIGHT OVARY. 3. FREE FLUID IN THE POSTERIOR CUL-DE-SAC AND LEFT ADNEXAL REGION. 4. NO OVARIAN TORSION. 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 Is this a current diagnosis for this admission?: Yes (3) Leukocytosis Is this a current diagnosis for this admission?: Yes (4) Pelvic pain Is this a current diagnosis for this admission?: Yes (5) Right tubo-ovarian mass Is this a current diagnosis for this admission?: Yes - Time Time Spent: 30 to 50 Minutes Critical Time spent with patient: Less than 15 minutes Medications reviewed and adjusted accordingly: Yes Anticipated discharge: Home Within: within 24 hours - Inpatient Certification Based on my medical assessment, after consideration of the patient's comorbidities, presenting symptoms, or acuity I expect that the services needed warrant INPATIENT care.: Yes I certify that my determination is in accordance with my understanding of Medicare's requirements for reasonable and necessary INPATIENT services [42 CFR 412.3e].: Yes Medical Necessity: Need For IV Fluids, Need for Pain Control, Need for IV Antibiotics - Plan Summary Plan Summary: patient with +GC in [facility]. Will treat with antibiotics for PID. Do not feel cyst on right ovary is concerning for abscess and most likely a normal follicular cyst. IUD was removed in the ER by DOCTOR OF PODIATRY there due to its migration into the cervical canal and was likely not necessarily causing the pain but likely contributing to it. It's position in cervix canal not beneficial for it's purpose. 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 Mefoxitin and doxycycline Pain control. One time dose of Azithromycin for Chalmydia coverage as recommended by [employer] when pt found to have Gonorrhea
[2018-05-15 08:15] LABS: ABSOLUTE MONOCYTES (AUTO) 0.8 10^3/uL (0.1-1.4); ABSOLUTE NEUT (AUTO) 6.2 10^3/uL (1.7-8.2); BASOPHILS % (AUTO) 0.5 % (0-2); EOSINOPHILS % (AUTO) 0.5 % (0-6); LYMPHOCYTES % (AUTO) 12.7 % (13-45); MEAN CORPUSCULAR HEMOGLOBIN 22.8 pg (27.0-33.4); MEAN CORPUSCULAR VOLUME 74 fl (80-97); MONOCYTES % (AUTO) 9.4 % (3-13); PLATELET COUNT 211 10^3/uL (150-450); RED BLOOD COUNT 2.72 10^6/uL (3.72-5.28); SEGMENTED NEUTROPHILS % (AUTO) 76.9 % (42-78); TOTAL CELLS COUNTED % (AUTO) 100 %
[2018-05-15 08:18] LABS: HEMOGLOBIN 6.2 g/dL (12.0-15.5)
[2018-05-15 08:20] LABS: ALANINE AMINOTRANSFERASE 14 U/L (9-52); ALBUMIN 2.8 g/dL (3.5-5.0); ALKALINE PHOSPHATASE 77 U/L (38-126); ANION GAP 8 (5-19); ASPARTATE AMINO TRANSFERASE 13 U/L (14-36); BILIRUBIN,DIRECT 0.2 mg/dL (0.0-0.4); BILIRUBIN,TOTAL 0.6 mg/dL (0.2-1.3); BLOOD UREA NITROGEN 7 mg/dL (7-20); CALCIUM 8.2 mg/dL (8.4-10.2); CARBON DIOXIDE 20 mmol/L (22-30); CHLORIDE 111 mmol/L (98-107); GLUCOSE 87 mg/dL (75-110); POTASSIUM 3.2 mmol/L (3.6-5.0); SODIUM 138.9 mmol/L (137-145); TOTAL PROTEIN 5.6 g/dL (6.3-8.2)
[2018-05-15] MEDS ORDERED: AZITHROMYCIN 1 GM SUSP PACKET PO ONE (09:30)
--- NOTE | 2018-05-15 09:46 | PDOC PROGRESS REPORT ---
Subjective Progress Note for:: 05/15/18 Subjective:: pt feels better and has no problems Reason For Visit: FEVER, PID, ANEMIA, PAIN IN PELVIS, GONORRHEA Physical Exam - Physical Exam Vital Signs: Temp Pulse Resp BP Pulse Ox 98.8 F 86 16 90/50 L 98 05/15/18 07:42 05/15/18 07:42 05/15/18 07:42 05/15/18 07:42 05/15/18 07:42 Intake & Output 05/14/18 05/15/18 05/16/18 06:59 06:59 06:59 Intake Total 1200 Balance 1200 Weight 67 kg General appearance: PRESENT: no acute distress GI/Abdominal exam: PRESENT: soft Result Laboratory Results: 05/15/18 07:08 05/15/18 07:08 05/14/18 05/14/18 05/14/18 15:24 15:24 15:24 WBC 14.8 H RBC 3.41 L Hgb 7.9 L Hct 25.4 L MCV 74 L MCH 23.0 L MCHC 30.9 L RDW 16.0 H Plt Count 290 Seg Neutrophils % 84.4 H Lymphocytes % 8.6 L Monocytes % 6.0 Eosinophils % 0.2 Basophils % 0.8 Absolute Neutrophils 12.5 H Absolute Lymphocytes 1.3 Absolute Monocytes 0.9 Absolute Eosinophils 0.0 Absolute Basophils 0.1 VBG pH VBG pCO2 VBG HCO3 VBG Base Excess Sodium 139.2 Potassium 3.3 L Chloride 107 Carbon Dioxide 23 Anion Gap 9 BUN 10 Creatinine 0.75 Est GFR ( Amer) > 60 Est GFR (Non-Af Amer) > 60 Glucose 95 Lactic Acid Calcium 9.2 Total Bilirubin 1.1 AST 19 ALT 21 Alkaline Phosphatase 111 Total Protein 7.3 Albumin 3.8 Lipase 58.2 Serum HCG, Qual NEGATIVE Urine Color Urine Appearance Urine pH Ur Specific [place] Urine Protein Urine Glucose (UA) Urine Ketones Urine Blood Urine Nitrite Ur Leukocyte Esterase Urine WBC (Auto) Urine RBC (Auto) Stool Occult Blood Blood Type Antibody Screen 05/14/18 05/14/18 05/14/18 15:24 18:00 20:32 WBC RBC Hgb Hct MCV MCH MCHC RDW Plt Count Seg Neutrophils % Lymphocytes % Monocytes % Eosinophils % Basophils % Absolute Neutrophils Absolute Lymphocytes Absolute Monocytes Absolute Eosinophils Absolute Basophils VBG pH 7.37 VBG pCO2 41.3 VBG HCO3 23.1 VBG Base Excess -2.1 Sodium Potassium Chloride Carbon Dioxide Anion Gap BUN Creatinine Est GFR ( Amer) Est GFR (Non-Af Amer) Glucose Lactic Acid Calcium Total Bilirubin AST ALT Alkaline Phosphatase Total Protein Albumin Lipase Serum HCG, Qual Urine Color YELLOW Urine Appearance SLIGHTLY-CLOUDY Urine pH 5.0 Ur Specific [place] 1.030 Urine Protein 100 H Urine Glucose (UA) NEGATIVE Urine Ketones NEGATIVE Urine Blood NEGATIVE Urine Nitrite NEGATIVE Ur Leukocyte Esterase SMALL H Urine WBC (Auto) 11 Urine RBC (Auto) 1 Stool Occult Blood NEGATIVE Blood Type Antibody Screen 05/14/18 05/14/18 05/14/18 20:35 20:35 20:35 WBC 13.2 H RBC 3.20 L Hgb 7.3 L Hct 24.0 L MCV 75 L MCH 22.9 L MCHC 30.5 L RDW 16.5 H Plt Count 254 Seg Neutrophils % Lymphocytes % Monocytes % Eosinophils % Basophils % Absolute Neutrophils Absolute Lymphocytes Absolute Monocytes Absolute Eosinophils Absolute Basophils VBG pH VBG pCO2 VBG HCO3 VBG Base Excess Sodium Potassium Chloride Carbon Dioxide Anion Gap BUN Creatinine Est GFR ( Amer) Est GFR (Non-Af Amer) Glucose Lactic Acid 1.1 Calcium Total Bilirubin AST ALT Alkaline Phosphatase Total Protein Albumin Lipase Serum HCG, Qual Urine Color Urine Appearance Urine pH Ur Specific [place] Urine Protein Urine Glucose (UA) Urine Ketones Urine Blood Urine Nitrite Ur Leukocyte Esterase Urine WBC (Auto) Urine RBC (Auto) Stool Occult Blood Blood Type A POSITIVE Antibody Screen NEGATIVE 05/15/18 05/15/18 07:08 07:08 WBC 8.0 RBC 2.72 L Hgb 6.2 L Hct 20.0 L MCV 74 L MCH 22.8 L MCHC 31.0 L RDW 16.0 H Plt Count 211 Seg Neutrophils % 76.9 Lymphocytes % 12.7 L Monocytes % 9.4 Eosinophils % 0.5 Basophils % 0.5 Absolute Neutrophils 6.2 Absolute Lymphocytes 1.0 Absolute Monocytes 0.8 Absolute Eosinophils 0.0 Absolute Basophils 0.0 VBG pH VBG pCO2 VBG HCO3 VBG Base Excess Sodium 138.9 Potassium 3.2 L Chloride 111 H Carbon Dioxide 20 L Anion Gap 8 BUN 7 Creatinine 0.72 Est GFR ( Amer) > 60 Est GFR (Non-Af Amer) > 60 Glucose 87 Lactic Acid Calcium 8.2 L Total Bilirubin 0.6 AST 13 L ALT 14 Alkaline Phosphatase 77 Total Protein 5.6 L Albumin 2.8 L Lipase Serum HCG, Qual Urine Color Urine Appearance Urine pH Ur Specific [place] Urine Protein Urine Glucose (UA) Urine Ketones Urine Blood Urine Nitrite Ur Leukocyte Esterase Urine WBC (Auto) Urine RBC (Auto) Stool Occult Blood Blood Type Antibody Screen Impressions: Abdomen/Pelvis CT 05/14/18 00:00 IMPRESSION: 1. A likely 2 cm right corpus luteum cyst. Correlate with same day ultrasound 2. Appendix is not completely visualized. However, there are no pericecal inflammatory changes. Chest X-Ray 05/14/18 16:40 IMPRESSION: NO ACUTE FINDINGS. Transvaginal US 05/14/18 18:09 IMPRESSION: 1. IUD LOCATED IN THE CERVICAL CANAL. NOT IN THE ENDOMETRIAL CANAL. 2. SEPTATED CYST IN THE RIGHT OVARY. 3. FREE FLUID IN THE POSTERIOR CUL-DE-SAC AND LEFT ADNEXAL REGION. 4. NO OVARIAN TORSION. Assessment & Plan - Plan Summary Plan Summary: continue IV meds for total of 48 hours afebrile and change to PO antibiotics and d/c home
[2018-05-15] MEDS ORDERED: DOXYCYCLINE HYCLATE INJ 100 MG VIAL IV SCH (10:00)
[2018-05-15] MEDS: OXYCODONE-ACETAMINOPHEN 5-325 MG TABLET PO PRN ×2 (10:10→18:06)
[2018-05-15] MEDS: NORMAL SALINE 1000 ML 1,000 ML IV PRN ×2 (10:11→22:55)
[2018-05-15] MEDS: DOXYCYCLINE HYCLATE 100 MG in DEXTROSE 5%-WATER 250 ML IV SCH ×2 (10:12→22:55)
[2018-05-15 10:27] LABS: IRON(TIBC) < 10.1 ug/dL (37-170)
[2018-05-15] MEDS ORDERED: CEFOXITIN INJ 1 GM VIAL IV SCH (12:00)
[2018-05-15] MEDS: CEFOXITIN SODIUM 2 GM in DEXTROSE 5%-WATER 100 ML IV SCH ×2 (13:40→17:17)
[2018-05-16] MEDS: CEFOXITIN SODIUM 2 GM in DEXTROSE 5%-WATER 100 ML IV SCH ×4 (00:56→18:55)
[2018-05-16] MEDS: OXYCODONE-ACETAMINOPHEN 5-325 MG TABLET PO PRN ×2 (00:56→20:28)
[2018-05-16] MEDS ORDERED: DIPHENHYDRAMINE HCL 25 MG CAPSULE PO PRN (05:00)
[2018-05-16] MEDS ORDERED: ACETAMINOPHEN 325 MG TABLET PO PRN (05:00)
[2018-05-16] MEDS: IBUPROFEN 800 MG TABLET PO PRN (06:14)
--- NOTE | 2018-05-16 07:52 | PDOC CONSULTATION ---
Consultation Consult Date: 05/16/18 Attending physician:: LYNN ARSHAD Consult reason:: Severe anemia History of Present Illness Admission Date/PCP: 05/14/18 22:24 ANTONIA DUBOIS DO Patient complains of: Anemia History of Present Illness: TIRSO HENDERSON is a 32 year old female with recently diagnosed PID currently receiving IV antibiotics. She does have history of gastric bypass done in 2018, prior to that she does have history of anemia. She remembers that when she had a PE in 2014 she was told she was anemic. Post gastric bypass she has not received any IV iron. She presents with a hemoglobin of 7, we did iron studies and the saturation was less than 10% and the ferritin was 25. B12 however is normal. She does not have any active bleeding that she tells me about currently. Today's hemoglobin is down to 6.2. Past Medical History Cardiac Medical History: Reports: Pulmonary Embolism - 2014, treated with antic oagulation for 2 years and taken off by her PCP. Psychiatric Medical History: Denies: Depression Past Surgical History Past Surgical History: Reports: Section, Cholecystectomy, Gastric Bypass Surgery Social History Information Source: Patient Lives with: Family Smoking Status: Never Smoker Frequency of Alcohol Use: None Hx Recreational Drug Use: No Drugs: None Hx Prescription Drug Abuse: No - Advance Directive Resuscitation Status: Full Code Family History Family History: Reviewed & Not Pertinent Parental Family History Reviewed: Yes Children Family History Reviewed: Yes Sibling(s) Family History Reviewed.: Yes Medication/Allergy Home Medications: Multivitamin [Tab-A-Arlet (Multiple Vitamin) Tablet] 1 tab PO DAILY 05/15/18 Allergies/Adverse Reactions: chocolate flavor Allergy (Verified 08/26/16 20:53) Review of Systems Constitutional: ABSENT: chills, fever(s), headache(s), weight gain, weight loss Eyes: ABSENT: visual disturbances Ears: ABSENT: hearing changes Cardiovascular: ABSENT: chest pain, dyspnea on exertion, edema, orthropnea, palpitations Respiratory: ABSENT: cough, hemoptysis Gastrointestinal: ABSENT: abdominal pain, constipation, diarrhea, hematemesis, hematochezia, nausea, vomiting Genitourinary: ABSENT: dysuria, hematuria Musculoskeletal: ABSENT: joint swelling Integumentary: ABSENT: rash, wounds Neurological: ABSENT: abnormal gait, abnormal speech, confusion, dizziness, focal weakness, syncope Psychiatric: ABSENT: anxiety, depression, homidical ideation, suicidal ideation Endocrine: ABSENT: cold intolerance, heat intolerance, polydipsia, polyuria Hematologic/Lymphatic: ABSENT: easy bleeding, easy bruising Physical Exam Vital Signs: Temp Pulse Resp BP Pulse Ox 98.4 F 84 17 94/51 L 100 05/16/18 05:40 05/16/18 05:40 05/16/18 05:40 05/16/18 05:40 05/16/18 05:40 Intake & Output 05/15/18 05/16/18 05/17/18 06:59 06:59 06:59 Intake Total 2200 3330 Balance 2200 3330 Weight 67 kg 67 kg General appearance: PRESENT: no acute distress, well-developed, well-nourished Head exam: PRESENT: atraumatic, normocephalic Eye exam: PRESENT: conjunctiva pink, EOMI, PERRLA. ABSENT: scleral icterus Ear exam: PRESENT: normal external ear exam Mouth exam: PRESENT: moist, tongue midline Neck exam: ABSENT: carotid bruit, JVD, lymphadenopathy, thyromegaly Respiratory exam: PRESENT: clear to auscultation gavino. ABSENT: rales, rhonchi, wheezes Cardiovascular exam: PRESENT: RRR. ABSENT: diastolic murmur, rubs, systolic murmur Pulses: PRESENT: normal dorsalis pedis pul Vascular exam: PRESENT: normal capillary refill GI/Abdominal exam: PRESENT: normal bowel sounds, soft. ABSENT: distended, guarding, mass, organolmegaly, rebound, tenderness Rectal exam: PRESENT: deferred Extremities exam: PRESENT: full ROM. ABSENT: calf tenderness, clubbing, pedal edema Neurological exam: PRESENT: alert, awake, oriented to person, oriented to place, oriented to time, oriented to situation, CN II-XII grossly intact. ABSENT: motor sensory deficit Psychiatric exam: PRESENT: appropriate affect, normal mood. ABSENT: homicidal ideation, suicidal ideation Skin exam: PRESENT: dry, intact, warm. ABSENT: cyanosis, rash Results Laboratory Results: 05/15/18 07:08 05/15/18 07:08 05/15/18 05/15/18 05/15/18 07:08 07:08 07:08 WBC 8.0 RBC 2.72 L Hgb 6.2 L Hct 20.0 L MCV 74 L MCH 22.8 L MCHC 31.0 L RDW 16.0 H Plt Count 211 Seg Neutrophils % 76.9 Lymphocytes % 12.7 L Monocytes % 9.4 Eosinophils % 0.5 Basophils % 0.5 Absolute Neutrophils 6.2 Absolute Lymphocytes 1.0 Absolute Monocytes 0.8 Absolute Eosinophils 0.0 Absolute Basophils 0.0 Sodium 138.9 Potassium 3.2 L Chloride 111 H Carbon Dioxide 20 L Anion Gap 8 BUN 7 Creatinine 0.72 Est GFR ( Amer) > 60 Est GFR (Non-Af Amer) > 60 Glucose 87 Calcium 8.2 L Iron < 10.1 L TIBC 380 % Saturation UNABLE TO CALCULATE Ferritin 25.80 Total Bilirubin 0.6 AST 13 L ALT 14 Alkaline Phosphatase 77 Total Protein 5.6 L Albumin 2.8 L Vitamin B12 > 1000.0 H Folate 11.20 05/14/18 15:24 Clean Catch Midstream Urine Culture - Final Escherichia Coli Impressions: Abdomen/Pelvis CT 05/14/18 00:00 IMPRESSION: 1. A likely 2 cm right corpus luteum cyst. Correlate with same day ultrasound 2. Appendix is not completely visualized. However, there are no pericecal inflammatory changes. Chest X-Ray 05/14/18 16:40 IMPRESSION: NO ACUTE FINDINGS. Transvaginal US 05/14/18 18:09 IMPRESSION: 1. IUD LOCATED IN THE CERVICAL CANAL. NOT IN THE ENDOMETRIAL CANAL. 2. SEPTATED CYST IN THE RIGHT OVARY. 3. FREE FLUID IN THE POSTERIOR CUL-DE-SAC AND LEFT ADNEXAL REGION. 4. NO OVARIAN TORSION. Assessment & Plan - Diagnosis (1) Anemia Qualifiers: Anemia type: iron deficiency Iron deficiency anemia type: other iron deficiency Qualified Code(s): D50.8 - Other iron deficiency anemias Is this a current diagnosis for this admission?: Yes Plan: Severe iron deficiency anemia secondary to gastric bypass, plan for 2 units of PRBC today, will plan for IV iron as an outpatient. We generally do not like to give iron infusion when patient is actively infected. Today had coordination with Dr. Mujica of [employer] service along with nursing, to ensure patient has antibiotic dosing on time. Patient will need IV access today. - Time Time Spent: Greater than 70 Minutes - Inpatient Certification Based on my medical assessment, after consideration of the patient's comorbidities, presenting symptoms, or acuity I expect that the services needed warrant INPATIENT care.: Yes I certify that my determination is in accordance with my understanding of Medicare's requirements for reasonable and necessary INPATIENT services [42 CFR 412.3e].: Yes Medical Necessity: Need for IV Antibiotics, Risk of Complication if Not Cared For in Hospital, Other - Need for blood transfusion
[2018-05-16] MEDS: DOXYCYCLINE HYCLATE 100 MG in DEXTROSE 5%-WATER 250 ML IV SCH ×2 (10:19→22:39)
[2018-05-16 10:23] LABS: HEMATOCRIT 20.9 % (36.0-47.0); MEAN CORPUSCULAR HGB CONC 30.6 g/dL (32.0-36.0); MEAN CORPUSCULAR VOLUME 75 fl (80-97); PLATELET COUNT 218 10^3/uL (150-450); RED BLOOD COUNT 2.78 10^6/uL (3.72-5.28); WHITE BLOOD COUNT 4.7 10^3/uL (4.0-10.5)
[2018-05-16 10:34] LABS: HEMOGLOBIN 6.4 g/dL (12.0-15.5)
[2018-05-17] MEDS: CEFOXITIN SODIUM 2 GM in DEXTROSE 5%-WATER 100 ML IV SCH ×2 (01:24→06:14)
--- NOTE | 2018-05-17 03:30 | PDOC PROGRESS REPORT ---
Subjective Progress Note for:: 05/16/18 Subjective:: feeling better, denies fevers/chills/nausea/vomiting. now able to eat. Reason For Visit: PID, ANEMIA Physical Exam - Physical Exam Vital Signs: Temp Pulse Resp BP Pulse Ox 98.5 F 77 17 103/65 100 05/16/18 16:04 05/16/18 16:04 05/16/18 16:04 05/16/18 16:04 05/16/18 16:04 Intake & Output 05/15/18 05/16/18 05/17/18 06:59 06:59 06:59 Intake Total 2200 3680 2820 Balance 2200 3680 2820 Weight 67 kg 67 kg General appearance: PRESENT: no acute distress Head exam: PRESENT: atraumatic, normocephalic Ear exam: PRESENT: normal external ear exam Neck exam: PRESENT: full ROM. ABSENT: carotid bruit, JVD, lymphadenopathy, thyromegaly Respiratory exam: PRESENT: clear to auscultation gavino, symmetrical, unlabored Cardiovascular exam: PRESENT: RRR. ABSENT: diastolic murmur, rubs, systolic murmur Pulses: PRESENT: normal dorsalis pedis pul, +2 pedal pulses bilateral Vascular exam: PRESENT: normal capillary refill GI/Abdominal exam: PRESENT: normal bowel sounds, soft. ABSENT: distended, guarding, mass, organolmegaly, rebound, tenderness Rectal exam: PRESENT: deferred Extremities exam: PRESENT: full ROM. ABSENT: calf tenderness, clubbing, pedal edema Neurological exam: PRESENT: alert, awake, oriented to person, oriented to place, oriented to time, oriented to situation, CN II-XII grossly intact. ABSENT: motor sensory deficit Psychiatric exam: PRESENT: appropriate affect, normal mood. ABSENT: homicidal ideation, suicidal ideation Skin exam: PRESENT: dry, intact, warm. ABSENT: cyanosis, rash Result Laboratory Results: 05/16/18 09:50 05/15/18 07:08 05/14/18 05/16/18 20:35 09:50 WBC 4.7 RBC 2.78 L Hgb 6.4 L Hct 20.9 L MCV 75 L MCH 23.0 L MCHC 30.6 L RDW 16.0 H Plt Count 218 Blood Type A POSITIVE Antibody Screen NEGATIVE 05/14/18 15:24 Clean Catch Midstream Urine Culture - Final Escherichia Coli Impressions: Abdomen/Pelvis CT 05/14/18 00:00 IMPRESSION: 1. A likely 2 cm right corpus luteum cyst. Correlate with same day ultrasound 2. Appendix is not completely visualized. However, there are no pericecal inflammatory changes. Chest X-Ray 05/14/18 16:40 IMPRESSION: NO ACUTE FINDINGS. Transvaginal US 05/14/18 18:09 IMPRESSION: 1. IUD LOCATED IN THE CERVICAL CANAL. NOT IN THE ENDOMETRIAL CANAL. 2. SEPTATED CYST IN THE RIGHT OVARY. 3. FREE FLUID IN THE POSTERIOR CUL-DE-SAC AND LEFT ADNEXAL REGION. 4. NO OVARIAN TORSION. Status: Imported from PACS Assessment & Plan - Diagnosis (1) Pelvic inflammatory disease (PID) Is this a current diagnosis for this admission?: Yes Plan: Mefoxitin/Doxy IV. Will be 48 hours afebrile at approximately 0400 on 05/17/2018. Plan to change to po abx and discharge tomorrow if doing well with 2 wks of po abx. she will then need to f/u in the office. (2) Anemia Qualifiers: Anemia type: iron deficiency Iron deficiency anemia type: other iron deficiency Qualified Code(s): D50.8 - Other iron deficiency anemias Is this a current diagnosis for this admission?: Yes Plan: Defer to Dr. Covington. Appreciate his assistance with patient. (3) Acute urogenital gonorrhea Is this a current diagnosis for this admission?: Yes Plan: treatment for PID as above (4) IUD migration Is this a current diagnosis for this admission?: Yes Plan: IUD removed by [facility] in ER - Time Time Spent with patient: 15-24 minutes Smoking Cessation Education: 3 to 10 minutes Medications reviewed and adjusted accordingly: Yes Anticipated discharge: Home Within: within 48 hours - Inpatient Certification Based on my medical assessment, after consideration of the patient's comorbidities, presenting symptoms, or acuity I expect that the services needed warrant INPATIENT care.: Yes I certify that my determination is in accordance with my understanding of Medicare's requirements for reasonable and necessary INPATIENT services [42 CFR 412.3e].: Yes Medical Necessity: Need For IV Fluids, Need for Pain Control, Need for IV Antibiotics
[2018-05-17 07:10] LABS: HEMATOCRIT 27.7 % (36.0-47.0); MEAN CORPUSCULAR HEMOGLOBIN 24.7 pg (27.0-33.4); MEAN CORPUSCULAR HGB CONC 32.4 g/dL (32.0-36.0); MEAN CORPUSCULAR VOLUME 76 fl (80-97); PLATELET COUNT 250 10^3/uL (150-450); RED BLOOD COUNT 3.63 10^6/uL (3.72-5.28); RED CELL DISTRIBUTION WIDTH 16.1 % (11.5-14.0); WHITE BLOOD COUNT 4.4 10^3/uL (4.0-10.5)
--- NOTE | 2018-05-17 07:36 | PDOC PROGRESS REPORT ---
Subjective Progress Note for:: 05/17/18 Subjective:: No acute events overnight, pt given 2 units PRBC w/out complication, hb improved to 9 Reason For Visit: PID, ANEMIA Physical Exam Vital Signs: Temp Pulse Resp BP Pulse Ox 98.6 F 78 18 107/69 99 05/17/18 04:00 05/17/18 04:00 05/17/18 04:00 05/17/18 04:00 05/17/18 04:00 Intake & Output 05/16/18 05/17/18 05/18/18 06:59 06:59 06:59 Intake Total 3680 3490 Balance 3680 3490 Weight 67 kg General appearance: PRESENT: no acute distress, well-developed, well-nourished Head exam: PRESENT: atraumatic, normocephalic Eye exam: PRESENT: conjunctiva pink, EOMI, PERRLA. ABSENT: scleral icterus Ear exam: PRESENT: normal external ear exam Mouth exam: PRESENT: moist, tongue midline Neck exam: ABSENT: carotid bruit, JVD, lymphadenopathy, thyromegaly Respiratory exam: PRESENT: clear to auscultation gavino. ABSENT: rales, rhonchi, wheezes Cardiovascular exam: PRESENT: RRR. ABSENT: diastolic murmur, rubs, systolic murmur Pulses: PRESENT: normal dorsalis pedis pul Vascular exam: PRESENT: normal capillary refill GI/Abdominal exam: PRESENT: normal bowel sounds, soft. ABSENT: distended, guarding, mass, organolmegaly, rebound, tenderness Rectal exam: PRESENT: deferred Extremities exam: PRESENT: full ROM. ABSENT: calf tenderness, clubbing, pedal edema Neurological exam: PRESENT: alert, awake, oriented to person, oriented to place, oriented to time, oriented to situation, CN II-XII grossly intact. ABSENT: motor sensory deficit Psychiatric exam: PRESENT: appropriate affect, normal mood. ABSENT: homicidal ideation, suicidal ideation Skin exam: PRESENT: dry, intact, warm. ABSENT: cyanosis, rash Results Laboratory Results: 05/17/18 06:31 05/15/18 07:08 05/14/18 05/16/18 05/17/18 20:35 09:50 06:31 WBC 4.7 4.4 RBC 2.78 L 3.63 L Hgb 6.4 L 9.0 L D Hct 20.9 L 27.7 L MCV 75 L 76 L MCH 23.0 L 24.7 L MCHC 30.6 L 32.4 RDW 16.0 H 16.1 H Plt Count 218 250 Blood Type A POSITIVE Antibody Screen NEGATIVE 05/14/18 15:24 Clean Catch Midstream Urine Culture - Final Escherichia Coli Impressions: Abdomen/Pelvis CT 05/14/18 00:00 IMPRESSION: 1. A likely 2 cm right corpus luteum cyst. Correlate with same day ultrasound 2. Appendix is not completely visualized. However, there are no pericecal inflammatory changes. Chest X-Ray 05/14/18 16:40 IMPRESSION: NO ACUTE FINDINGS. Transvaginal US 05/14/18 18:09 IMPRESSION: 1. IUD LOCATED IN THE CERVICAL CANAL. NOT IN THE ENDOMETRIAL CANAL. 2. SEPTATED CYST IN THE RIGHT OVARY. 3. FREE FLUID IN THE POSTERIOR CUL-DE-SAC AND LEFT ADNEXAL REGION. 4. NO OVARIAN TORSION. Assessment & Plan - Diagnosis (1) Anemia Qualifiers: Anemia type: iron deficiency Iron deficiency anemia type: other iron deficiency Qualified Code(s): D50.8 - Other iron deficiency anemias Is this a current diagnosis for this admission?: Yes Plan: Hb stable post tx, will set up f/u in our office for 2-3 wk to allow for appropriate clearance of infection, then will plan IV iron infusion as outpt - Time Time Spent with patient: 15-24 minutes - Inpatient Certification Based on my medical assessment, after consideration of the patient's comorbidities, presenting symptoms, or acuity I expect that the services needed warrant INPATIENT care.: Yes I certify that my determination is in accordance with my understanding of Medicare's requirements for reasonable and necessary INPATIENT services [42 CFR 412.3e].: Yes Medical Necessity: Need for IV Antibiotics
[2018-05-17] MEDS ORDERED: METRONIDAZOLE 500 MG TABLET PO SCH (10:00)
[2018-05-17] MEDS ORDERED: DOXYCYCLINE HYCLATE 100 MG TABLET PO SCH (10:00)
--- NOTE | 2018-05-17 11:17 | PDOC DISCHARGE SUMMARY ---
General - Admit/Disc Date/PCP Admission Date/Primary Care Provider: 05/14/18 22:24 ANTONIA DUBOIS, Discharge Date: 05/17/18 - Discharge Diagnosis (1) Leukocytosis Is this a current diagnosis for this admission?: Yes (2) Pelvic inflammatory disease (PID) Is this a current diagnosis for this admission?: Yes (3) Pelvic pain Is this a current diagnosis for this admission?: Yes - Additional Information Resuscitation Status: Full Code Home Medications: Multivitamin [Tab-A-Arlet (Multiple Vitamin) Tablet] 1 tab PO DAILY 05/15/18 History of Present Illness Patient complains of: Pelvic pain History of Present Illness: TIRSO HENDERSON is a 32 year old female She was admitted with PID and her IUD was removed. She was treated with Iv antibiotic. Hospital Course Hospital Course: She did well on the antibiotics and is now afebrile with a normal WBC. She would like to go home to day on oral antibiotics. Physical Exam - Physical Exam Vital Signs: Temp Pulse Resp BP Pulse Ox 98.7 F 75 16 108/69 100 05/17/18 07:26 05/17/18 07:26 05/17/18 07:26 05/17/18 07:26 05/17/18 07:26 Intake & Output 05/16/18 05/17/18 05/18/18 06:59 06:59 06:59 Intake Total 3680 3490 Balance 3680 3490 Weight 67 kg General appearance: PRESENT: no acute distress - Abdomen is nontender., well- developed, well-nourished Result Laboratory Results: 05/17/18 06:31 05/15/18 07:08 05/14/18 05/17/18 20:35 06:31 WBC 4.4 RBC 3.63 L Hgb 9.0 L D Hct 27.7 L MCV 76 L MCH 24.7 L MCHC 32.4 RDW 16.1 H Plt Count 250 Blood Type A POSITIVE Antibody Screen NEGATIVE 05/14/18 15:24 Clean Catch Midstream Urine Culture - Final Escherichia Coli Impressions: Abdomen/Pelvis CT 05/14/18 00:00 IMPRESSION: 1. A likely 2 cm right corpus luteum cyst. Correlate with same day ultrasound 2. Appendix is not completely visualized. However, there are no pericecal inflammatory changes. Chest X-Ray 05/14/18 16:40 IMPRESSION: NO ACUTE FINDINGS. Transvaginal US 05/14/18 18:09 IMPRESSION: 1. IUD LOCATED IN THE CERVICAL CANAL. NOT IN THE ENDOMETRIAL CANAL. 2. SEPTATED CYST IN THE RIGHT OVARY. 3. FREE FLUID IN THE POSTERIOR CUL-DE-SAC AND LEFT ADNEXAL REGION. 4. NO OVARIAN TORSION. Plan Discharge Plan: Home on antibiotics. Followup in one week. Time Spent: Less than 30 Minutes
[2018-05-17 11:55] VITALS: BP 94/51
== END 2018-05-17 12:22 | disposition home or self-care (01) | DRG 759 ==
LOC: ER 13:27 → EH 22:24 → 2N 23:36
PROVIDERS: ADMIT Obstetrics & Gynecology; ATTEND Obstetrics & Gynecology
PROC: 0UPDXHZ Removal of Contraceptive Device from Uterus and Cervix, External Approach (ICD-10-PCS; principal; 2018-05-14)
PROC: 30233N1 Transfusion of Nonautologous Red Blood Cells into Peripheral Vein, Percutaneous Approach (ICD-10-PCS; 2018-05-16)
DX: A54.24 Gonococcal female pelvic inflammatory disease (principal); D50.8 Other iron deficiency anemias; D72.829 Elevated white blood cell count, unspecified; N83.9 Noninflammatory disorder of ovary, fallopian tube and broad ligament, unspecified; Z98.84 Bariatric surgery status; Z86.711 Personal history of pulmonary embolism; Z88.1 Allergy status to other antibiotic agents; Z90.49 Acquired absence of other specified parts of digestive tract
CPT/HCPCS: 36415; 36430; 71046; 74177; 76830; 80053; 81001; 82272; 82607; 82728; 82746; 82803; 83540; 83550; 83605; 83690; 84703; 85025; 85027; 85610; 85730; 86850; 86900; 86901; 86920; 87040; 87086; 87088; 87186; 87210; 87491; 87591; 93005; 93010; 93976; 96374; 96375; 99285; J0694; J2405; J3010; J3490; J7030; J7060; P9016; Q0144

== ENCOUNTER 2018-07-05 08:48 | Outpatient (CLI) | payer OTHER, BC ==
[~2018-07-05 08:48] MED LIST: DEXAMETHASONE SOD PHOSPHATE 10 MG in NORMAL SALINE 50 ML IV PRN; DIPHENHYDRAMINE HCL 25 MG in NORMAL SALINE 50 ML IV PRN; DIPHENHYDRAMINE HCL 50 MG in NORMAL SALINE 50 ML IV PRN; FAMOTIDINE/PF 20 MG in NORMAL SALINE 50 ML IV PRN; IRON SUCROSE COMPLEX 100 MG in NORMAL SALINE 100 ML IV PRN; NORMAL SALINE 250 ML IV PRN
[2018-07-05 11:12] VITALS: BP 114/69
== END 2018-07-05 13:18 | disposition home or self-care (01) ==
LOC: II 08:48 → 5TH 09:24 → II 13:18
PROVIDERS: ATTEND Internal Medicine
PROC: 3E033GC Introduction of Other Therapeutic Substance into Peripheral Vein, Percutaneous Approach (ICD-10-PCS; principal; 2018-07-05)
PROC: 3E0333Z Introduction of Anti-inflammatory into Peripheral Vein, Percutaneous Approach (ICD-10-PCS; 2018-07-05)
DX: D50.8 Other iron deficiency anemias (principal); K90.9 Intestinal malabsorption, unspecified
CPT/HCPCS: 96365; 96367; J1756; J1200; S0028; J1100

== ENCOUNTER 2018-07-12 08:50 | Outpatient (CLI) | payer OTHER, BC ==
[~2018-07-12 08:50] MED LIST changes: -DIPHENHYDRAMINE HCL 50 MG in NORMAL SALINE 50 ML IV PRN
[2018-07-12 09:14] VITALS: BP 112/74
== END 2018-07-12 11:42 | disposition home or self-care (01) ==
LOC: II 08:50 → 5TH 08:53 → II 11:42
PROVIDERS: ATTEND Internal Medicine
PROC: 3E033GC Introduction of Other Therapeutic Substance into Peripheral Vein, Percutaneous Approach (ICD-10-PCS; principal; 2018-07-12)
PROC: 3E0333Z Introduction of Anti-inflammatory into Peripheral Vein, Percutaneous Approach (ICD-10-PCS; 2018-07-12)
DX: D50.8 Other iron deficiency anemias (principal); K90.9 Intestinal malabsorption, unspecified
CPT/HCPCS: 96365; 96367; J1756; J1200; S0028; J1100; 96375

== ENCOUNTER 2018-09-27 09:02 | Outpatient (CLI) | payer OTHER, BC ==
[~2018-09-27 09:02] MED LIST changes: +DIPHENHYDRAMINE 50 MG in NS 50 ML IV PRN; +FAMOTIDINE 20 MG in NS 50 ML IV PRN; -FAMOTIDINE/PF 20 MG in NORMAL SALINE 50 ML IV PRN; -IRON SUCROSE COMPLEX 100 MG in NORMAL SALINE 100 ML IV PRN; +IRON SUCROSE COMPLEX 200 MG in NORMAL SALINE 100 ML IV PRN; +NORMAL SALINE 250 ML @ KVO IV PRN; -NORMAL SALINE 250 ML IV PRN
[2018-09-27 11:09] VITALS: BP 104/60
== END 2018-09-27 11:54 | disposition home or self-care (01) ==
LOC: II 09:02 → 5TH 09:05 → II 11:54
PROVIDERS: ATTEND Internal Medicine
PROC: 3E033GC Introduction of Other Therapeutic Substance into Peripheral Vein, Percutaneous Approach (ICD-10-PCS; principal; 2018-09-27)
DX: D50.8 Other iron deficiency anemias (principal); K90.9 Intestinal malabsorption, unspecified
CPT/HCPCS: 96365; 96367; 96360; J1756; J1200; J7050; S0028; J1100; 96375

== ENCOUNTER 2018-10-04 08:55 | Outpatient (CLI) | payer OTHER, BC ==
[~2018-10-04 08:55] MED LIST changes: -DIPHENHYDRAMINE 50 MG in NS 50 ML IV PRN; -FAMOTIDINE 20 MG in NS 50 ML IV PRN; +FAMOTIDINE/PF 20 MG in NORMAL SALINE 50 ML IV PRN
[2018-10-04 10:22] VITALS: BP 108/72
[2018-10-04] MEDS ORDERED: PROMETHAZINE HCL INJ 25 MG/1 ML VIAL ONE (11:24)
== END 2018-10-04 14:00 | disposition home or self-care (01) ==
LOC: II 08:55 → 5TH 08:57 → II 14:00
PROVIDERS: ATTEND Internal Medicine
DX: D50.8 Other iron deficiency anemias (principal); K90.9 Intestinal malabsorption, unspecified
CPT/HCPCS: 96365; 96366; J1756; J1200; J2550; J7050; S0028; J1100

== ENCOUNTER 2018-10-11 09:05 | Outpatient (CLI) | payer OTHER, BC ==
[~2018-10-11 09:05] MED LIST changes: +DEXAMETHASONE 10 MG in NS 50 ML IV PRN; -DEXAMETHASONE SOD PHOSPHATE 10 MG in NORMAL SALINE 50 ML IV PRN; +DIPHENHYDRAMINE 50 MG in NS 50 ML IV PRN; -DIPHENHYDRAMINE HCL 25 MG in NORMAL SALINE 50 ML IV PRN; +FAMOTIDINE 20 MG in NS 50 ML IV PRN; -FAMOTIDINE/PF 20 MG in NORMAL SALINE 50 ML IV PRN
[2018-10-11] MEDS ORDERED: DIPHENHYDRAMINE HCL 25 MG in NORMAL SALINE 50 ML IV PRN (09:53)
[2018-10-11 10:45] VITALS: BP 102/50
== END 2018-10-11 11:36 | disposition home or self-care (01) ==
LOC: II 09:05 → 5TH 09:24 → II 11:36
PROVIDERS: ATTEND Internal Medicine
DX: D50.9 Iron deficiency anemia, unspecified (principal); K90.9 Intestinal malabsorption, unspecified
CPT/HCPCS: 96365; 96367; J1756; J1200; J7050; S0028; J1100

== ENCOUNTER 2018-10-18 09:00 | Outpatient (CLI) | payer OTHER, BC ==
[~2018-10-18 09:00] MED LIST changes: -DEXAMETHASONE 10 MG in NS 50 ML IV PRN; +DEXAMETHASONE SOD PHOSPHATE 10 MG in NORMAL SALINE 50 ML IV PRN; -DIPHENHYDRAMINE 50 MG in NS 50 ML IV PRN; +DIPHENHYDRAMINE HCL 25 MG in NORMAL SALINE 50 ML IV PRN; -FAMOTIDINE 20 MG in NS 50 ML IV PRN; +FAMOTIDINE/PF 20 MG in NORMAL SALINE 50 ML IV PRN; -NORMAL SALINE 250 ML @ KVO IV PRN; +NORMAL SALINE 250 ML IV PRN
[2018-10-18 09:33] VITALS: BP 105/51
== END 2018-10-18 11:13 | disposition home or self-care (01) ==
LOC: II 09:00 → 5TH 09:00 → II 11:13
PROVIDERS: ATTEND Internal Medicine
PROC: 3E033GC Introduction of Other Therapeutic Substance into Peripheral Vein, Percutaneous Approach (ICD-10-PCS; principal; 2018-10-18)
PROC: 3E0333Z Introduction of Anti-inflammatory into Peripheral Vein, Percutaneous Approach (ICD-10-PCS; 2018-10-18)
DX: D50.8 Other iron deficiency anemias (principal); K90.9 Intestinal malabsorption, unspecified
CPT/HCPCS: 96365; 96367; 96360; J1756; J1200; J7050; S0028; J1100; 96375

== ENCOUNTER 2018-11-01 08:57 | Outpatient (CLI) | payer OTHER, BC ==
[~2018-11-01 08:57] MED LIST changes: +DEXAMETHASONE 10 MG in NS 50 ML IV PRN; -DEXAMETHASONE SOD PHOSPHATE 10 MG in NORMAL SALINE 50 ML IV PRN; +FAMOTIDINE 20 MG in NS 50 ML IV PRN; -FAMOTIDINE/PF 20 MG in NORMAL SALINE 50 ML IV PRN; +NORMAL SALINE 250 ML @ KVO IV PRN; -NORMAL SALINE 250 ML IV PRN
[2018-11-01] MEDS ORDERED: DEXAMETHASONE 10 MG in NS 50 ML IV PRN (09:10)
[2018-11-01] MEDS ORDERED: DIPHENHYDRAMINE HCL 25 MG in NORMAL SALINE 50 ML IV PRN (09:11)
[2018-11-01] MEDS ORDERED: FAMOTIDINE 20 MG in NS 50 ML IV PRN (09:12)
[2018-11-01] MEDS ORDERED: IRON SUCROSE COMPLEX 200 MG in NORMAL SALINE 100 ML IV PRN (09:13)
[2018-11-01 10:04] VITALS: BP 119/65
[2018-11-02] MEDS ORDERED: NORMAL SALINE 250 ML @ KVO IV PRN (05:00)
== END 2018-11-01 12:49 | disposition home or self-care (01) ==
LOC: II 08:57 → 5TH 08:58 → II 12:49
PROVIDERS: ATTEND Internal Medicine
PROC: 3E033GC Introduction of Other Therapeutic Substance into Peripheral Vein, Percutaneous Approach (ICD-10-PCS; principal; 2018-11-01)
DX: D50.8 Other iron deficiency anemias (principal); K90.9 Intestinal malabsorption, unspecified
CPT/HCPCS: 96365; 96367; J1756; J1200; J7050; S0028; J1100; 96366

== ENCOUNTER 2019-01-23 09:41 | Outpatient (CLI) | payer OTHER, BC ==
[~2019-01-23 09:41] MED LIST changes: +DIPHENHYDRAMINE 50 MG in NS 50 ML IV PRN; -DIPHENHYDRAMINE HCL 25 MG in NORMAL SALINE 50 ML IV PRN
[2019-01-23 09:56] VITALS: BP 114/72
== END 2019-01-23 12:00 | disposition home or self-care (01) ==
LOC: II 09:41 → 5TH 09:44 → II 12:00
PROVIDERS: ATTEND Internal Medicine
PROC: 3E033GC Introduction of Other Therapeutic Substance into Peripheral Vein, Percutaneous Approach (ICD-10-PCS; principal; 2019-01-23)
PROC: 3E0333Z Introduction of Anti-inflammatory into Peripheral Vein, Percutaneous Approach (ICD-10-PCS; 2019-01-23)
DX: D50.8 Other iron deficiency anemias (principal); K90.9 Intestinal malabsorption, unspecified
CPT/HCPCS: 96365; 96367; J1756; J1200; J7050; S0028; J1100

== ENCOUNTER 2019-01-31 08:40 | Outpatient (CLI) | payer OTHER, BC ==
[~2019-01-31 08:40] MED LIST changes: -DIPHENHYDRAMINE 50 MG in NS 50 ML IV PRN; +DIPHENHYDRAMINE HCL 25 MG in NORMAL SALINE 50 ML IV PRN
[2019-01-31 09:08] VITALS: BP 102/65
== END 2019-01-31 11:22 | disposition home or self-care (01) ==
LOC: II 08:40 → 5TH 08:47 → II 11:22
PROVIDERS: ATTEND Internal Medicine
PROC: 3E033GC Introduction of Other Therapeutic Substance into Peripheral Vein, Percutaneous Approach (ICD-10-PCS; principal; 2019-01-31)
PROC: 3E0333Z Introduction of Anti-inflammatory into Peripheral Vein, Percutaneous Approach (ICD-10-PCS; 2019-01-31)
DX: D50.8 Other iron deficiency anemias (principal); K90.9 Intestinal malabsorption, unspecified
CPT/HCPCS: 96365; 96367; J1756; J1200; J7050; S0028; J1100

== ENCOUNTER 2019-02-07 08:46 | Outpatient (CLI) | payer OTHER, BC ==
[~2019-02-07 08:46] MED LIST changes: -DEXAMETHASONE 10 MG in NS 50 ML IV PRN; -IRON SUCROSE COMPLEX 200 MG in NORMAL SALINE 100 ML IV PRN; +IRON SUCROSE COMPLEX 200 MG in NORMAL SALINE 250 ML IV PRN; -NORMAL SALINE 250 ML @ KVO IV PRN
[2019-02-07] MEDS ORDERED: DEXAMETHASONE 10 MG in NS 50 ML IV PRN (08:48)
[2019-02-07] MEDS ORDERED: NORMAL SALINE 250 ML IV PRN (09:00)
[2019-02-07 09:02] VITALS: BP 118/69
[2019-02-07] MEDS ORDERED: IRON SUCROSE COMPLEX 200 MG in NORMAL SALINE 100 ML IV PRN (09:10)
== END 2019-02-07 11:37 | disposition home or self-care (01) ==
LOC: II 08:46 → 5TH 08:47 → II 11:37
PROVIDERS: ATTEND Internal Medicine
PROC: 3E033GC Introduction of Other Therapeutic Substance into Peripheral Vein, Percutaneous Approach (ICD-10-PCS; principal; 2019-02-07)
PROC: 3E0333Z Introduction of Anti-inflammatory into Peripheral Vein, Percutaneous Approach (ICD-10-PCS; 2019-02-07)
DX: D50.8 Other iron deficiency anemias (principal); K90.9 Intestinal malabsorption, unspecified
CPT/HCPCS: 96365; 96367; J1756; J1200; J7050; S0028; J1100

== ENCOUNTER 2019-02-21 09:56 | Outpatient (CLI) | payer OTHER, BC ==
[~2019-02-21 09:56] MED LIST changes: +DEXAMETHASONE 10 MG in NS 50 ML IV PRN; +IRON SUCROSE COMPLEX 200 MG in NORMAL SALINE 100 ML IV PRN; -IRON SUCROSE COMPLEX 200 MG in NORMAL SALINE 250 ML IV PRN; +NORMAL SALINE 250 ML @ KVO IV PRN
[2019-02-21 10:14] VITALS: BP 122/84
== END 2019-02-21 12:37 | disposition home or self-care (01) ==
LOC: II 09:56 → 5TH 10:00 → II 12:37
PROVIDERS: ATTEND Internal Medicine
PROC: 3E033GC Introduction of Other Therapeutic Substance into Peripheral Vein, Percutaneous Approach (ICD-10-PCS; principal; 2019-02-21)
PROC: 3E0333Z Introduction of Anti-inflammatory into Peripheral Vein, Percutaneous Approach (ICD-10-PCS; 2019-02-21)
DX: D50.8 Other iron deficiency anemias (principal); K90.9 Intestinal malabsorption, unspecified
CPT/HCPCS: 96365; 96367; J1756; J1200; J7050; S0028; J1100

== ENCOUNTER 2019-02-28 09:03 | Outpatient (CLI) | payer OTHER, BC ==
[~2019-02-28 09:03] MED LIST changes: +NORMAL SALINE 250 ML IV PRN
[2019-02-28 10:00] VITALS: BP 121/72
== END 2019-02-28 11:00 | disposition home or self-care (01) ==
LOC: II 09:03 → 5TH 09:06 → II 11:00
PROVIDERS: ATTEND Internal Medicine
PROC: 3E0333Z Introduction of Anti-inflammatory into Peripheral Vein, Percutaneous Approach (ICD-10-PCS; principal; 2019-02-28)
PROC: 3E033GC Introduction of Other Therapeutic Substance into Peripheral Vein, Percutaneous Approach (ICD-10-PCS; 2019-02-28)
DX: D50.8 Other iron deficiency anemias (principal); K90.9 Intestinal malabsorption, unspecified
CPT/HCPCS: 96365; 96367; J1756; J1200; J7050; S0028; J1100

== ENCOUNTER 2019-03-04 07:06 | Emergency (ER) | payer OTHER, BC ==
[2019-03-04 07:15] VITALS: BP 123/78
--- NOTE | 2019-03-04 08:08 | ER Document Report ---
ED General - General Chief Complaint: Finger Injury Stated Complaint: FINGER SWELLING Time Seen by Provider: 03/04/19 07:44 Primary Care Provider: ANTONIA DUBOIS DO [Primary Care Provider] - Follow up in 3-5 days TRAVEL OUTSIDE OF THE [place] IN LAST 30 DAYS: No - HPI Notes: Patient is a 33-year-old female that presents to the emergency department for chief complaint of right index finger pain. Patient states when she woke up this morning she had swelling in her right index finger. She states while at work her skin on the dorsal aspect cracked and bled a tiny bit. Patient denies injury to the area. She denies fevers and chills. She states it is a achy pain that is worse with movement and relieved some with rest. She has not taken any pain medication at home. She denies history or family history of gout. Patient does do repetitive movements with her right- hand at work. Past Medical History: History of PE, iron deficiency anemia Past Surgical History: Reviewed in chart Social History: Denies drugs alcohol and tobacco use Family History: Reviewed and noncontributory for presenting illness Allergies: Reviewed, see documented allergy list. REVIEW OF SYSTEMS: CONSTITUTIONAL : No fever No chills No diaphoresis No recent illness EENT: No vision changes No congestion No sore throat CARDIOVASCULAR: No chest pain No palpitations RESPIRATORY: No shortness of breath No cough No difficulty breathing GASTROINTESTINAL: No abdominal pain No nausea No vomiting No diarrhea GENITOURINARY: No dysuria No hematuria No difficulty urinating MUSCULOSKELETAL: No back pain No leg pain No arm pain Right index finger pain SKIN: No rashes Finger wound LYMPHATIC: No swollen, enlarged glands. NEUROLOGICAL: No lightheadedness No headache No weakness No paresthesias PSYCHIATRIC: No anxiety No depression PHYSICAL EXAMINATION: Vital signs reviewed, nursing noted reviewed. GENERAL: Well-appearing, well-nourished and in no acute distress. HEAD: Atraumatic, normocephalic. EYES: Eyes appear normal, extraocular movements intact, sclera anicteric, conjunctiva are normal. ENT: nares patent, oropharynx clear without exudates. Moist mucous membranes. NECK: Normal range of motion, supple without lymphadenopathy LUNGS: Breath sounds clear to auscultation bilaterally and equal. No wheezes rales or rhonchi. HEART: Regular rate and rhythm without murmurs ABDOMEN: Soft, nontender, normoactive bowel sounds. No rebound, guarding, or rigidity. No masses appreciated. EXTREMITIES: Mild localized edema to dorsal right index finger between PIP and MCP. Slight decreased range of motion of PIP secondary to swelling. Tenderness to palpation of extensor tendon between PIP and MCP on right index finger. No flexor tendon tenderness. NEUROLOGICAL: No focal neurological deficits. Moves all extremities spontaneously Motor and sensory grossly intact on exam. PSYCH: Normal mood, normal affect. SKIN: Warm, Dry, normal turgor. Right index finger: Nonbleeding superficial 0.5 cm skin crack to dorsal side between PIP and MCP, no calor or erythema. - Related Data Allergies/Adverse Reactions: chocolate flavor Allergy (Verified 08/26/16 20:53) ferumoxytol [From Feraheme] Adverse Reaction (Verified 01/27/19 13:27) iron [From Venofer] Adverse Reaction (Verified 01/27/19 13:26) iron dextran complex [From Infed] Adverse Reaction (Verified 01/27/19 13:26) Past Medical History - Social History Smoking Status: Never Smoker Chew tobacco use (# tins/day): No Frequency of alcohol use: None Drug Abuse: None Family History: Reviewed & Not Pertinent Patient has suicidal ideation: No Patient has homicidal ideation: No - Past Medical History Cardiac Medical History: Reports: Hx Pulmonary Embolism - 2014, treated with anticoagulation for 2 years and taken off by her PCP. Renal/ Medical History: Denies: Hx Peritoneal Dialysis Psychiatric Medical History: Denies: Hx Depression Past Surgical History: Reports: Hx Section, Hx Cholecystectomy, Hx Gastric Bypass Surgery Physical Exam - Vital signs Vitals: Temp Pulse Resp BP Pulse Ox 98.2 F 93 14 123/78 100 03/04/19 07:13 03/04/19 07:13 03/04/19 07:13 03/04/19 07:13 03/04/19 07:13 Course - Re-evaluation Re-evalutation: 03/04/19 08:08 Vitals reviewed. Nursing notes reviewed. Patient is well-appearing and nontoxic. She was offered ibuprofen but declined. Patient has mild localized swelling on the dorsal aspect of her right index finger. There is no fusiform swelling or flexor tendon tenderness. She does not have flexor tenosynovitis. Her skin has cracked slightly but is not actively bleeding. There is no erythema or calor to suggest acute infection. There is no area of fluctuance to suggest underlying abscess. Patient does do repetitive movements with her right hand at work and symptoms may be secondary to local inflammation and tendinitis. X-ray shows no underlying fracture. Patient counseled on rest, ice, elevation and anti-inflammatory management as well as keeping the wound clean and symptoms of infection. Patient will follow with her PCP for wound reevaluation in the next few days. She will return for new or worsening symptoms. She is stable for discharge. 03/04/19 08:40 Finger X-Ray 03/04/19 00:00 IMPRESSION: No fracture or dislocation. Soft tissue swelling about the right 2nd digit. No radiopaque foreign body. - Vital Signs Vital signs: Temp Pulse Resp BP Pulse Ox 98.2 F 93 14 123/78 100 03/04/19 07:13 03/04/19 07:13 03/04/19 07:13 03/04/19 07:13 03/04/19 07:13 - Diagnostic Test Radiology reviewed: Image reviewed, Reports reviewed Discharge - Discharge Clinical Impression: Strain of right index finger Condition: Stable Disposition: HOME, SELF-CARE Instructions: Tendonitis ([facility]) Additional Instructions: Please return to the emergency department if you have any worsening, or concern of your symptoms. Please return to the emergency department if you develop increased pain, redness, swelling or fevers. Please follow-up with your primary care physician in 2-3 days and any other recommended physicians. If prescribed, take all medications as directed. If you have any questions or concerns do not hesitate to return the emergency department for evaluation. Ice the affected area 2-3 times a day for 15 minutes at a time to help with swelling. Do not apply ice directly to your skin. Keep your hand elevated above the level of your heart to help with swelling Take ibuprofen at home as needed for pain. Use dosing on the label. Referrals: ANTONIA DUBOIS DO [Primary Care Provider] - Follow up in 3-5 days
--- NOTE | 2019-03-04 08:35 | RADIOLOGY REPORT (SQ) ---
EXAM DESCRIPTION: FINGER RIGHT COMPLETED DATE/TIME: 03/04/2019 7:40 am REASON FOR STUDY: acute swelling and pain COMPARISON: None. NUMBER OF VIEWS: Three views. TECHNIQUE: AP, lateral, and oblique images acquired of the right second finger. LIMITATIONS: None. FINDINGS: MINERALIZATION: Normal. BONES: No acute fracture or dislocation. No worrisome bone lesions. SOFT TISSUES: Soft tissue swelling about the right 2nd digit. OTHER: No other significant finding. IMPRESSION: No fracture or dislocation. Soft tissue swelling about the right 2nd digit. No radiopa que foreign body. COMMENT: SITE OF TRAUMA/COMPLAINT MARKED/STAMP COMPLETED: YES. TECHNICAL DOCUMENTATION: JOB ID: [id number] [employer]- All Rights Reserved Reading location - IP/workstation name: [email or web address]
== END 2019-03-04 08:15 | disposition home or self-care (01) ==
LOC: ER 07:06
DX: S63.610A Unspecified sprain of right index finger, initial encounter (principal); X58.XXXA Exposure to other specified factors, initial encounter; Z86.711 Personal history of pulmonary embolism; Z90.49 Acquired absence of other specified parts of digestive tract; Z98.84 Bariatric surgery status
CPT/HCPCS: 99283

== ENCOUNTER 2019-04-08 08:53 | Outpatient (CLI) | payer OTHER, BC ==
[~2019-04-08 08:53] MED LIST changes: -NORMAL SALINE 250 ML IV PRN
[2019-04-08 09:47] VITALS: BP 119/71
== END 2019-04-08 10:35 | disposition home or self-care (01) ==
LOC: II 08:53 → 5TH 08:55 → II 10:35
PROVIDERS: ATTEND Internal Medicine
PROC: 3E033GC Introduction of Other Therapeutic Substance into Peripheral Vein, Percutaneous Approach (ICD-10-PCS; principal; 2019-04-08)
PROC: 3E0333Z Introduction of Anti-inflammatory into Peripheral Vein, Percutaneous Approach (ICD-10-PCS; 2019-04-08)
DX: D50.8 Other iron deficiency anemias (principal); K90.9 Intestinal malabsorption, unspecified
CPT/HCPCS: 96365; 96367; J1756; J1200; J7050; S0028; J1100

== ENCOUNTER 2019-04-15 09:37 | Outpatient (CLI) | payer OTHER, BC ==
[~2019-04-15 09:37] MED LIST changes: -NORMAL SALINE 250 ML @ KVO IV PRN; +NORMAL SALINE 250 ML IV PRN
[2019-04-15 11:29] VITALS: BP 126/80
== END 2019-04-15 12:22 | disposition home or self-care (01) ==
LOC: II 09:37 → 5TH 09:39 → II 12:22
PROVIDERS: ATTEND Internal Medicine
PROC: 3E0333Z Introduction of Anti-inflammatory into Peripheral Vein, Percutaneous Approach (ICD-10-PCS; principal; 2019-04-15)
PROC: 3E033GC Introduction of Other Therapeutic Substance into Peripheral Vein, Percutaneous Approach (ICD-10-PCS; 2019-04-15)
DX: D50.8 Other iron deficiency anemias (principal); K90.9 Intestinal malabsorption, unspecified
CPT/HCPCS: 96365; 96367; J1756; J1200; J7050; S0028; J1100

== ENCOUNTER 2019-04-22 09:39 | Outpatient (CLI) | payer OTHER, BC ==
[~2019-04-22 09:39] MED LIST changes: +DIPHENHYDRAMINE 50 MG in NS 50 ML IV PRN; -DIPHENHYDRAMINE HCL 25 MG in NORMAL SALINE 50 ML IV PRN; +NORMAL SALINE 250 ML @ KVO IV PRN; -NORMAL SALINE 250 ML IV PRN
[2019-04-22 09:52] VITALS: BP 115/73
== END 2019-04-22 12:10 | disposition home or self-care (01) ==
LOC: II 09:39 → 5TH 09:50 → II 12:10
PROVIDERS: ATTEND Internal Medicine
DX: D50.8 Other iron deficiency anemias (principal); K90.9 Intestinal malabsorption, unspecified
CPT/HCPCS: 96365; 96367; J1756; J1200; J7050; S0028; J1100

== ENCOUNTER 2019-05-06 08:58 | Outpatient (CLI) | payer OTHER, BC ==
[~2019-05-06 08:58] MED LIST changes: -DIPHENHYDRAMINE 50 MG in NS 50 ML IV PRN; +DIPHENHYDRAMINE HCL 25 MG in NORMAL SALINE 50 ML IV PRN
[2019-05-06 09:13] VITALS: BP 112/67
== END 2019-05-06 11:25 | disposition home or self-care (01) ==
LOC: II 08:58 → 5TH 08:59 → II 11:25
PROVIDERS: ATTEND Internal Medicine
DX: D50.8 Other iron deficiency anemias (principal); K90.9 Intestinal malabsorption, unspecified
CPT/HCPCS: 96365; 96367; J1756; J1200; J7050; S0028; J1100

== ENCOUNTER 2019-10-03 12:40 | Outpatient (CLI) | payer OTHER, BC ==
[2019-10-03 12:57] VITALS: BP 117/38
== END 2019-10-03 14:47 | disposition home or self-care (01) ==
LOC: II 12:40 → 5TH 12:42 → II 14:47
PROVIDERS: ATTEND Internal Medicine
DX: D50.8 Other iron deficiency anemias (principal); K90.9 Intestinal malabsorption, unspecified
CPT/HCPCS: 96365; 96367; 96375; J1756; J1200; J7050; S0028; J1100; 96374

== ENCOUNTER 2019-10-10 12:54 | Outpatient (CLI) | payer OTHER, BC ==
[~2019-10-10 12:54] MED LIST changes: +IRON SUCROSE COMPLEX 200 MG in NORMAL SALINE 250 ML IV PRN; -NORMAL SALINE 250 ML @ KVO IV PRN; +NORMAL SALINE 250 ML IV PRN
[2019-10-10 13:43] VITALS: BP 121/79
== END 2019-10-10 15:15 | disposition home or self-care (01) ==
LOC: II 12:54 → 5TH 12:56 → II 15:15
PROVIDERS: ATTEND Internal Medicine
DX: D50.8 Other iron deficiency anemias (principal); K90.9 Intestinal malabsorption, unspecified
CPT/HCPCS: 96365; 96367; J1756; J1200; J7050; S0028; J1100; 96368

== ENCOUNTER 2019-10-17 12:42 | Outpatient (CLI) | payer OTHER, BC ==
[~2019-10-17 12:42] MED LIST changes: -IRON SUCROSE COMPLEX 200 MG in NORMAL SALINE 250 ML IV PRN; +NORMAL SALINE 250 ML @ KVO IV PRN; -NORMAL SALINE 250 ML IV PRN
[2019-10-17 12:58] VITALS: BP 110/76
== END 2019-10-17 15:30 | disposition home or self-care (01) ==
LOC: II 12:42 → 5TH 12:44 → II 15:30
PROVIDERS: ATTEND Internal Medicine
DX: D50.8 Other iron deficiency anemias (principal); K90.9 Intestinal malabsorption, unspecified
CPT/HCPCS: 96365; 96367; J1756; J1200; J7050; S0028; J1100

== ENCOUNTER 2019-10-24 09:56 | Outpatient (CLI) | payer OTHER, BC ==
[2019-10-24 10:36] VITALS: BP 121/76
== END 2019-10-24 12:49 | disposition home or self-care (01) ==
LOC: II 09:56 → 5TH 11:08 → II 12:49
PROVIDERS: ATTEND Internal Medicine
DX: D50.9 Iron deficiency anemia, unspecified (principal); K90.9 Intestinal malabsorption, unspecified
CPT/HCPCS: 96365; 96367; J1756; J1200; J7050; S0028; J1100

== ENCOUNTER 2019-11-07 13:08 | Outpatient (CLI) | payer OTHER, BC ==
[~2019-11-07 13:08] MED LIST changes: +DEXAMETHASONE SOD PHOSPHATE 10 MG in NORMAL SALINE 50 ML IV PRN; +DIPHENHYDRAMINE HCL 50 MG in NORMAL SALINE 50 ML IV PRN; +FAMOTIDINE/PF 20 MG in NORMAL SALINE 50 ML IV PRN; +IRON SUCROSE COMPLEX 100 MG in NORMAL SALINE 100 ML IV PRN; +NORMAL SALINE 250 ML IV PRN
[2019-11-07 14:02] VITALS: BP 111/69
== END 2019-11-07 15:40 | disposition home or self-care (01) ==
LOC: II 13:08 → 5TH 13:49 → II 15:40
PROVIDERS: ATTEND Internal Medicine
DX: D50.8 Other iron deficiency anemias (principal); K90.9 Intestinal malabsorption, unspecified
CPT/HCPCS: 96365; 96367; J1756; J1200; J7050; S0028; J1100